=== PATIENT | female | born 1960 | race American Indian/Alaskan Native ===

== ENCOUNTER 2017-06-17 12:18 | Outpatient (CLI) | payer OTHER ==
[2017-06-17] MEDS ORDERED: PROVENTIL IH ONE (12:32)
== END 2017-06-17 12:19 | disposition home or self-care (01) ==
LOC: PF 12:18
PROVIDERS: ATTEND Internal Medicine
DX: J44.9 Chronic obstructive pulmonary disease, unspecified (principal); I10 Essential (primary) hypertension; F32.9 Major depressive disorder, single episode, unspecified; F17.200 Nicotine dependence, unspecified, uncomplicated
CPT/HCPCS: 94060

== ENCOUNTER 2017-07-26 07:19 | Emergency (ER) | payer SELFPAY ==
[2017-07-26] MEDS ORDERED: ATROVENT IH ONE (07:37)
[2017-07-26] MEDS ORDERED: PROVENTIL IH ONE (07:37)
--- NOTE | 2017-07-26 07:43 | Emergency Department Report ---
ED General Adult HPI - General Chief complaint: Dyspnea/Respdistress Stated complaint: FERNANDO Time Seen by Provider: 07/26/17 07:34 Source: patient Mode of arrival: Ambulatory Limitations: No Limitations - History of Present Illness Initial comments: PT c/o sob since this am at 0300. PT states she does not have insurance and she has COPD and she has tried to make her medicine last but she ran out. Complaint: copd -: Gradual, hour(s) Location: chest - Related Data Previous Rx's Medication Instructions Recorded Last Taken Type Azithromycin [Zithromax TAB] 250 mg PO QDAY #6 tablet 02/29/16 Unknown Rx Nebulizer/Compressor [Devilbiss 1 each MC DAILY PRN #1 each 02/29/16 Unknown Rx Pulmoneb Lt Comp-Neb] amLODIPine [Norvasc] 5 mg PO DAILY #15 tab 05/16/16 Unknown Rx Albuterol Sulfate [Albuterol 0.63% 0.63 mg IH TID PRN #1 box 07/26/17 Unknown Rx NEBS] Benzonatate [Tessalon Perles] 100 mg PO Q8HR PRN #12 capsule 07/26/17 Unknown Rx Ipratropium [Atrovent NEB] 0.5 mg IH Q6HRT PRN #1 box 07/26/17 Unknown Rx Prednisone [predniSONE 10 mg 10 mg PO .TAPER #1 tab.ds.pk 07/26/17 Unknown Rx (6-Day Pack, 21 Tabs)] traMADol [Ultram] 50 mg PO Q6HR PRN #12 tablet 07/26/17 Unknown Rx Allergies Allergy/AdvReac Type Severity Reaction Status Date / Time No Known Allergies Allergy Verified 05/16/16 09:50 ED Review of Systems ROS: Stated complaint: FERNANDO Other details as noted in HPI Comment: Unobtainable due to pts medical conditions (pt sob) Respiratory: cough, wheezing (audible ) ED Past Medical Hx - Past Medical History Previous Medical History?: Yes Hx COPD: Yes (several years ago) - Surgical History Past Surgical History?: No - Social History Smoking Status: Current Every Day Smoker Substance Use Type: Alcohol - Medications Home Medications: Home Medications Medication Instructions Recorded Confirmed Last Taken Type Azithromycin [Zithromax TAB] 250 mg PO QDAY #6 tablet 02/29/16 Unknown Rx Nebulizer/Compressor [Devilbiss 1 each MC DAILY PRN #1 each 02/29/16 Unknown Rx Pulmoneb Lt Comp-Neb] amLODIPine [Norvasc] 5 mg PO DAILY #15 tab 05/16/16 Unknown Rx Albuterol Sulfate [Albuterol 0.63% 0.63 mg IH TID PRN #1 box 07/26/17 Unknown Rx NEBS] Benzonatate [Tessalon Perles] 100 mg PO Q8HR PRN #12 capsule 07/26/17 Unknown Rx Ipratropium [Atrovent NEB] 0.5 mg IH Q6HRT PRN #1 box 07/26/17 Unknown Rx Prednisone [predniSONE 10 mg 10 mg PO .TAPER #1 tab.ds.pk 07/26/17 Unknown Rx (6-Day Pack, 21 Tabs)] traMADol [Ultram] 50 mg PO Q6HR PRN #12 tablet 07/26/17 Unknown Rx ED Physical Exam - General Limitations: No Limitations General appearance: alert, in no apparent distress - Head Head exam: Present: atraumatic, normocephalic, normal inspection - Eye Eye exam: Present: normal appearance, PERRL, EOMI. Absent: conjunctival injection - ENT ENT exam: Present: normal exam, mucous membranes moist, normal external ear exam , other (poor dentation ) - Neck Neck exam: Present: normal inspection, full ROM - Respiratory Respiratory exam: Present: respiratory distress, wheezes, accessory muscle use. Absent: normal lung sounds bilaterally, rhonchi, stridor, chest wall tenderness - Expanded Respiratory Exam Expanded Location: Wheezes: Right, Left, Upper, Lower - Cardiovascular Cardiovascular Exam: Present: regular rate, normal rhythm, normal heart sounds - GI/Abdominal GI/Abdominal exam: Present: soft. Absent: tenderness - Extremities Exam Extremities exam: Present: normal inspection, full ROM - Back Exam Back exam: Present: normal inspection, full ROM - Neurological Exam Neurological exam: Present: alert, oriented X3, normal gait - Psychiatric Psychiatric exam: Present: normal affect, normal mood - Skin Skin exam: Present: warm, dry, intact, normal color ED Course Vital Signs 07/26/17 07/26/17 07/26/17 07:21 08:05 08:32 Temperature 98 F Pulse Rate 90 Pulse Rate [ 100 H 102 H Bilateral Upper Lobe] Respiratory 26 H Rate Respiratory 20 20 Rate [Bilateral Upper Lobe] Blood Pressure 129/80 Blood Pressure [Right] O2 Sat by Pulse 98 Oximetry 07/26/17 07/26/17 09:54 10:00 Temperature Pulse Rate 88 Pulse Rate [ Bilateral Upper Lobe] Respiratory 22 20 Rate Respiratory Rate [Bilateral Upper Lobe] Blood Pressure Blood Pressure 111/74 [Right] O2 Sat by Pulse 96 99 Oximetry - Reevaluation(s) Reevaluation #1: 07/26/17 07:42 PT aware of plan of care. Reevaluation #2: 07/26/17 09:36 pt states she is feeling better. PT able to speak in full sentences. lungs cta but diminished zoe. no acute resp distress. PT denies chest pain/ pressure. PT c/o pain in her joints, patel zoe hands. PT states she was told it may be RA. PT states she wants to be dc'd home with RXs. PT states she was just approved for Medicaid and she can fill her RX and follow up with PCP. Will monitor and it pt remains stable will dc home. Reevaluation #3: 07/26/17 09:57 pt remains stable while in ED. No acute resp distress at this time. - Pulse Oximetry Interpretation Digit-Finger Initial Pulse Oximetry Readin Actions Taken: none ED Medical Decision Making - Lab Data Result diagrams: 07/26/17 08:00 07/26/17 08:00 - EKG Data -: EKG Interpreted by Me (and Dr Juarez ) EKG shows normal: sinus rhythm Rate: normal (88 BPM ) - EKG Data When compared to previous EKG there are: other (non specific changes) Interpretation: nonspecific ST-T wave yvonne 07/26/17 09:30 PT denies chest pain - Radiology Data Radiology results: report reviewed CXR -NAP - Differential Diagnosis COPD exacerbation, bronchitis, pna Critical Care Time: No Critical care attestation.: If time is entered above; I have spent that time in minutes in the direct care of this critically ill patient, excluding procedure time. ED Disposition Clinical Impression: COPD with exacerbation COPD (chronic obstructive pulmonary disease) Qualifiers: COPD type: COPD with acute exacerbation Qualified Code(s): J44.1 - Chronic obstructive pulmonary disease with (acute) exacerbation Arthralgia Qualifiers: Joint pain location: hand Laterality: bilateral Qualified Code(s): M25.541 - Pain in joints of right hand; M25.542 - Pain in joints of left hand Disposition: DC- TO HOME OR SELFCARE Is pt being admited?: No Does the pt Need Aspirin: No Condition: Stable Instructions: Chronic Obstructive Pulmonary Disease (ED) Additional Instructions: Refrain from smoking do not drive or drink alcohol after taking Ultram Follow up with PCP in 3-5 days Follow up with Pulmonary (lung specialist) Return to the ED if you develop chest pain, chest pressure or shortness of breath Prescriptions: Albuterol Sulfate [Albuterol 0.63% NEBS] 0.63 mg IH TID PRN #1 box PRN Reason: Wheezing Benzonatate [Tessalon Perles] 100 mg PO Q8HR PRN #12 capsule PRN Reason: Cough Ipratropium [Atrovent NEB] 0.5 mg IH Q6HRT PRN #1 box PRN Reason: Wheezing Prednisone [predniSONE 10 mg (6-Day Pack, 21 Tabs)] 10 mg PO .TAPER #1 tab.ds.pk traMADol [Ultram] 50 mg PO Q6HR PRN #12 tablet PRN Reason: Pain Referrals: PRIMARY CAREMD [Primary Care Provider] - 3-5 Days DANG CERON MD [Staff Physician] - 3-5 Days FENG COOMBS MD [Staff Physician] - 3-5 Days [facility] [Outside] - 3-5 Days Time of Disposition: 10:07
[2017-07-26 08:13] LABS: Basophils % (Auto) 0.7 % (0.0-1.8); Eosinophils % (Auto) 4.2 % (0.0-4.3); Mean Corpuscular HGB Conc 31 % (30-34); Mean Corpuscular Hemoglobin 26 pg (28-32); Mean Corpuscular Volume 85 fl (79-97); Platelet Count 269 K/mm3 (140-440); Red Blood Count 5.51 M/mm3 (3.65-5.03); Red Cell Distribution Width 15.5 % (13.2-15.2); White Blood Count 11.6 K/mm3 (4.5-11.0)
[2017-07-26 08:25] LABS: Hematocrit 46.9 % (30.3-42.9); Hemoglobin 14.5 gm/dl (10.1-14.3)
[2017-07-26 08:27] LABS: Anion Gap 17 mmol/L; BUN/Creatinine Ratio 13.33; Blood Urea Nitrogen 12 mg/dL (7-17); Calcium 7.9 mg/dL (8.4-10.2); Carbon Dioxide 26 mmol/L (22-30); Chloride 105.5 mmol/L (98-107); Glucose 111 mg/dL (65-100); Potassium 4.3 mmol/L (3.6-5.0); Sodium 144 mmol/L (137-145)
--- NOTE | 2017-07-26 08:45 | XRay Report ---
Chest 2 views: History: COPD, shortness of breath. Findings: Normal cardiomediastinal silhouette. Trachea is midline. No consolidation, pneumothorax or pleural effusion. Impression: No acute cardiopulmonary findings.
[2017-07-26 10:01] VITALS: BP 111/74
== END 2017-07-26 10:18 | disposition home or self-care (01) ==
LOC: ED 07:19
DX: J44.1 Chronic obstructive pulmonary disease with (acute) exacerbation (principal); M25.541 Pain in joints of right hand; F17.200 Nicotine dependence, unspecified, uncomplicated
CPT/HCPCS: 36415; 71020; 80048; 84484; 85025; 93005; 93010; 94640; 96372; 99284; J2930

== ENCOUNTER 2017-11-16 01:50 | Inpatient (IN) | payer MEDICAID ==
[2017-11-16] MEDS ORDERED: ROBITUSSIN AC PO ONE (02:17)
[2017-11-16] MEDS ORDERED: TESSALON PERLES PO ONE (02:17)
[2017-11-16] MEDS ORDERED: DUONEB *Not for PRN Use IH ONE (02:18)
--- NOTE | 2017-11-16 02:35 | Emergency Department Report ---
HPI - General Chief Complaint: Dyspnea/Respdistress Time Seen by Provider: 11/16/17 02:09 - HPI HPI: This is a 57 year-old female presents to the emergency department via EMS from home with complaint of a few days of some shortness of breath, a productive cough with thick greenish white sputum. She denies any significant chest pain but does have a little discomfort only when she coughs. It is associated with some intermittent chills and sweats but she denies actual checking her temperature to see if there is a fever. She is out of her medication for her inhaler and nebulizer and therefore has not taken anything for her symptoms prior to presentation. She has a past medical history of COPD and is oxygen dependent at 2 L. She did receive Solu-Medrol and albuterol in route with EMS. She does not have a primary care physician but her solution consultant is Dr. Ferreira. ED Past Medical Hx - Past Medical History Previous Medical History?: Yes Hx COPD: Yes (several years ago) - Surgical History Past Surgical History?: No - Social History Smoking Status: Current Every Day Smoker - Medications Home Medications: Home Medications Medication Instructions Recorded Confirmed Last Taken Type Azithromycin [Zithromax TAB] 250 mg PO QDAY #6 tablet 02/29/16 Unknown Rx Nebulizer and Compressor 1 each MC DAILY PRN #1 each 02/29/16 Unknown Rx [Devilbiss Pulmoneb Lt Comp-Neb] amLODIPine [Norvasc] 5 mg PO DAILY #15 tab 05/16/16 Unknown Rx Albuterol Sulfate [Albuterol 0.63% 0.63 mg IH TID PRN #1 box 07/26/17 Unknown Rx NEBS] Benzonatate [Tessalon Perles] 100 mg PO Q8HR PRN #12 capsule 07/26/17 Unknown Rx Ipratropium [Atrovent NEB] 0.5 mg IH Q6HRT PRN #1 box 07/26/17 Unknown Rx Prednisone [predniSONE 10 mg 10 mg PO .TAPER #1 tab.ds.pk 07/26/17 Unknown Rx (6-Day Pack, 21 Tabs)] traMADol [Ultram] 50 mg PO Q6HR PRN #12 tablet 07/26/17 Unknown Rx ED Review of Systems ROS: Stated complaint: FERNANDO Other details as noted in HPI Comment: All other systems reviewed and negative Constitutional: denies: chills, fever Eyes: denies: eye pain, eye discharge, vision change ENT: denies: ear pain, throat pain Respiratory: cough, shortness of breath, wheezing Cardiovascular: denies: palpitations, edema Gastrointestinal: denies: abdominal pain, nausea, diarrhea Genitourinary: denies: urgency, dysuria, discharge Musculoskeletal: denies: back pain, joint swelling, arthralgia Skin: denies: rash, lesions Neurological: denies: headache, weakness, paresthesias Physical Exam - Physical Exam Vital Signs: Vital Signs 11/16/17 01:55 Temperature 98.6 F Pulse Rate 88 Respiratory 22 Rate Blood Pressure 143/84 O2 Sat by Pulse 96 Oximetry Physical Exam: GENERAL: The patient is well-developed well-nourished. HENT: Normocephalic. Atraumatic. Patient has moist mucous membranes. EYES: Extraocular motions are intact. Pupils equal reactive to light bilaterally. NECK: Supple. Trachea is midline. CHEST/LUNGS: Mild to moderate wheezing throughout the chest. There is some mild tachypnea but no accessory muscle use. The patient has a barking cough that occurs with coughing fits that appears to exacerbate her shortness of breath. HEART/CARDIOVASCULAR: Regular. There is no tachycardia. There is no murmur. ABDOMEN: Abdomen is soft, nontender. Patient has normal bowel sounds. There is no abdominal distention. SKIN: Skin is warm and dry. NEURO: The patient is awake, alert, and oriented. The patient is cooperative. The patient has no focal neurologic deficits. The patient has normal speech. MUSCULOSKELETAL: There is no tenderness or deformity. There is no limitation range of motion. There is no evidence of acute injury. ED Course Vital Signs 11/16/17 01:55 Temperature 98.6 F Pulse Rate 88 Respiratory 22 Rate Blood Pressure 143/84 O2 Sat by Pulse 96 Oximetry ED Medical Decision Making - Lab Data Result diagrams: 11/16/17 02:34 11/16/17 02:34 - Radiology Data Radiology results: report reviewed EXAM: CT ANGIO CHEST HISTORY: SOB, elevated dimer TECHNIQUE: CT imaging obtained through the chest in pulmonary angiographic phase following intravenous administration of contrast. Transaxial, Coronal and sagittal reformats with maximal intensity projections are provided. PRIORS: Chest radiograph of the same date FINDINGS: Normal caliber main pulmonary artery. Well opacified pulmonary arterial tree. No pulmonary embolism. No pericardial effusion. Thoracic aorta is normal in course and caliber. No periaortic fluid or stranding. No pneumothorax or effusion. Predominantly linear right basilar atelectasis. Moderate centrilobular emphysema. The central airways are patent. No bronchiectasis. Imaged portion of the upper abdomen is unremarkable. The superficial soft tissues are unremarkable. No acute bony abnormality or worrisome osseous lesions identified. IMPRESSION: No pulmonary embolism. Predominantly linear right basilar atelectasis. An underlying small developing infection could appear very similar. Correlation with patient's symptoms is requested. Moderate centrilobular emphysema. Transcribed By: MB Dictated By: CAREY FREIRE MD Electronically Authenticated By: CAREY FREIRE MD Signed Date/Time: 11/16/17 0026 - Medical Decision Making 57-year-old female presents with shortness of breath, wheezing and a mixed dry and productive cough. She has some mild tachypnea but does not appear in respiratory distress. However the patient's coughing fits occur so badly and so intensely that sometimes she appears as if she is unable to catch her breath until the coughing stops. She received steroids and breathing treatments in route. She received 2 different antitussive medications and more breathing treatments upon arrival here. Labs show a mild leukocytosis and an elevated an equivocal d-dimer. For this reason a CT angiography of the chest was done that did not show any pulmonary embolism and does appear consistent with COPD/ emphysema but also may be showing some developing pneumonia. Blood cultures were sent and the patient was started on antibiotics. She'll be admitted to the hospital for further evaluation and treatment has been accepted for admission by the hospitalist, Dr. Shannon. - Differential Diagnosis COPD, PE, asthma, pneumonia Critical Care Time: No Critical care attestation.: If time is entered above; I have spent that time in minutes in the direct care of this critically ill patient, excluding procedure time. ED Disposition Clinical Impression: COPD exacerbation, Bronchitis Dyspnea Qualifiers: Dyspnea type: unspecified Qualified Code(s): R06.00 - Dyspnea, unspecified Disposition: DC-01 TO HOME OR SELFCARE Is pt being admited?: No Condition: Fair Time of Disposition: 05:13
[2017-11-16 02:57] LABS: Basophils % (Auto) 0.5 % (0.0-1.8); Eosinophils % (Auto) 0.6 % (0.0-4.3); Hematocrit 34.6 % (30.3-42.9); Hemoglobin 11.4 gm/dl (10.1-14.3); Mean Corpuscular HGB Conc 33 % (30-34); Mean Corpuscular Hemoglobin 28 pg (28-32); Mean Corpuscular Volume 84 fl (79-97); Platelet Count 237 K/mm3 (140-440); Red Blood Count 4.11 M/mm3 (3.65-5.03); Red Cell Distribution Width 15.2 % (13.2-15.2); White Blood Count 12.5 K/mm3 (4.5-11.0)
[2017-11-16 03:08] LABS: INR 0.9 (0.87-1.13)
[2017-11-16 03:15] LABS: Alanine Aminotransferase 13 units/L (7-56); Albumin 3.5 g/dL (3.9-5); Albumin/Globulin Ratio 1.5 %; Alkaline Phosphatase 93 units/L (35-129); Anion Gap 16 mmol/L; BUN/Creatinine Ratio 14; Blood Urea Nitrogen 10 mg/dL (7-17); Calcium 8.6 mg/dL (8.4-10.2); Carbon Dioxide 25 mmol/L (22-30); Chloride 104.8 mmol/L (98-107); Glucose 144 mg/dL (65-100); Potassium 3.6 mmol/L (3.6-5.0); Sodium 142 mmol/L (137-145); Total Protein 5.9 g/dL (6.3-8.2)
[2017-11-16] MEDS ORDERED: NACL ONE ×2 (03:33)
--- NOTE | 2017-11-16 03:57 | XRay Report ---
FINAL REPORT EXAM: XR CXR CLINICAL INDICATIONS: SOB, COUGH FINDINGS: Single frontal view of the chest was acquired. The heart is normal in size. The lungs are hyperinflated but clear. The pulmonary vascular is within normal limits. IMPRESSION: HYPERINFLATION NO CONSOLIDATIVE INFILTRATE
--- NOTE | 2017-11-16 04:29 | Cat Scan Report ---
FINAL REPORT EXAM: CT ANGIO CHEST HISTORY: SOB, elevated dimer TECHNIQUE: CT imaging obtained through the chest in pulmonary angiographic phase following intravenous administration of contrast. Transaxial, Coronal and sagittal reformats with maximal intensity projections are provided. PRIORS: Chest radiograph of the same date FINDINGS: Normal caliber main pulmonary artery. Well opacified pulmonary arterial tree. No pulmonary embolism. No pericardial effusion. Thoracic aorta is normal in course and caliber. No periaortic fluid or stranding. No pneumothorax or effusion. Predominantly linear right basilar atelectasis. Moderate centrilobular emphysema. The central airways are patent. No bronchiectasis. Imaged portion of the upper abdomen is unremarkable. The superficial soft tissues are unremarkable. No acute bony abnormality or worrisome osseous lesions identified. IMPRESSION: No pulmonary embolism. Predominantly linear right basilar atelectasis. An underlying small developing infection could appear very similar. Correlation with patient's symptoms is requested. Moderate centrilobular emphysema.
[2017-11-16] MEDS ORDERED: PROVENTIL IH ONE (04:44)
[2017-11-16] MEDS ORDERED: LEVAQUIN 750MG/150ML 750 MG/150 ML BAG IV ONE (04:51)
[2017-11-16] MEDS ORDERED: ZOFRAN IV PRN (05:29)
[2017-11-16] MEDS ORDERED: TYLENOL PO PRN (05:29)
[2017-11-16] MEDS ORDERED: DULCOLAX PR PRN (05:29)
--- NOTE | 2017-11-16 05:39 | History and Physical Report ---
History of Present Illness Date of examination: 11/16/17 History of present illness: 57-year-old woman with history of COPD, asthma comes into the emergency room complaining of cough productive of thick green sputum, shortness of breath not relieved with her nebulizer treatments at home. Also complained that her anterior chest feels heavy since yesterday, constant, intensity for withdrawal, no radiation, she cannot be exacerbating or relieving factors Review Of Systems: Constitutional: no weight loss Ears, eyes, nose, mouth and throat: no nasal congestion, no nasal discharge, no sinus pressure, blurry vision, diplopia Neck: No neck pain or rigidity. Cardiovascular: No chest pain, palpitations Respiratory:+ shortness of breath, cough Gastrointestinal: No abdominal pain, hematochezia Genitourinary : no dysuria, frequency , hematuria Musculoskeletal: no muscle ache Integumentary: no rash, no pruritis Neurological: no parathesias, focal weakness Endocrine: no cold or heat intolerance, no polyuria or polydipsia Hematologic/Lymphatic: no easy bruising, no easy bleeding, no gland swelling Allergic/Immunologic: no urticaria, no angioedema. PAST MEDICAL HISTORY:COPD, asthma PAST SURGICAL HISTORY: None FAMILY HISTORY: Hypertension SOCIAL HISTORY: Smokes 4 cigarettes a day, no alcohol or drug Medications and Allergies Allergies Allergy/AdvReac Type Severity Reaction Status Date / Time No Known Allergies Allergy Verified 05/16/16 09:50 Home Medications Medication Instructions Recorded Confirmed Last Taken Type Azithromycin [Zithromax TAB] 250 mg PO QDAY #6 tablet 02/29/16 Unknown Rx Nebulizer and Compressor 1 each MC DAILY PRN #1 each 02/29/16 Unknown Rx [Devilbiss Pulmoneb Lt Comp-Neb] amLODIPine [Norvasc] 5 mg PO DAILY #15 tab 05/16/16 Unknown Rx Albuterol Sulfate [Albuterol 0.63% 0.63 mg IH TID PRN #1 box 07/26/17 Unknown Rx NEBS] Benzonatate [Tessalon Perles] 100 mg PO Q8HR PRN #12 capsule 07/26/17 Unknown Rx Ipratropium [Atrovent NEB] 0.5 mg IH Q6HRT PRN #1 box 07/26/17 Unknown Rx Prednisone [predniSONE 10 mg 10 mg PO .TAPER #1 tab.ds.pk 07/26/17 Unknown Rx (6-Day Pack, 21 Tabs)] traMADol [Ultram] 50 mg PO Q6HR PRN #12 tablet 07/26/17 Unknown Rx Active Meds: Active Medications Acetaminophen (Tylenol) 650 mg PO Q4H PRN PRN Reason: Pain MILD(1-3)/Fever >100.5/MENG Albuterol/Ipratropium (Duoneb *Not For Prn Use*) 1 ampul IH Q6HRT YAKOV Bisacodyl (Dulcolax) 10 mg NC QDAY PRN PRN Reason: Const[place]rel[place] [facility] [place] Enoxaparin Sodium (Lovenox) 30 mg SUB-Q QDAY YAKOV Levofloxacin/Dextrose (Levaquin 750mg/150ml) 750 mg in 150 mls @ 100 mls/hr IV ONCE ONE Stop: 11/16/17 06:20 Levofloxacin/Dextrose (Levaquin 750mg/150ml) 750 mg in 150 mls @ 100 mls/hr IV ONCE ONE Stop: 11/17/17 06:58 Magnesium Hydroxide (Milk Of Magnesia) 30 ml PO Q4H PRN PRN Reason: Constipation Methylprednisolone Sodium Succinate (Solu-Medrol) 125 mg IV Q6HR YAKOV Ondansetron HCl (Zofran) 4 mg IV Q8H PRN PRN Reason: N/V unrelieved by Reglan Exam - Physical Exam Narrative exam: Gen. appearance: Patient lying in bed in no acute distress HEENT: Normocephalic/atraumatic, pupils equal round reactive to light, extra occular movement intact, no scleral icterus, no JVD or thyromegaly or nodule, neck is supple, mucous membrane moist, no erythema or exudate Heart: S1-S2, regular rate and rhythm Lungs: Wheezing, decreased entry bilateral breathing comfortable Abdomen: Positive bowel sounds, nontender, nondistended, no organomegaly Extremities: No edema, cyanosis, clubbing Neuro:: Oriented 3 , cranial nerves II-12 intact, speech, motor intact Skin: No rash, nodules, warm dry - Constitutional Vitals: Temp Pulse Resp BP Pulse Ox 98.6 F 88 31 H 148/76 100 11/16/17 01:55 11/16/17 03:30 11/16/17 03:30 11/16/17 03:30 11/16/17 03:30 Results - Labs CBC & Chem 7: 11/16/17 02:34 11/16/17 02:34 Labs: Abnormal lab results 11/16/17 11/16/17 11/16/17 Range/Units 02:34 02:34 02:34 WBC 12.5 H (4.5-11.0) K/mm3 Lymph % (Auto) 9.8 L (13.4-35.0) % Seg Neutrophils % 84.4 H (40.0-70.0) % Seg Neutrophils # 10.6 H (1.8-7.7) K/mm3 D-Dimer 361.00 H (0-234) ng/mlDDU Glucose 144 H (65-100) mg/dL Total Protein 5.9 L (6.3-8.2) g/dL Albumin 3.5 L (3.9-5) g/dL - Imaging and Cardiology EKG: image reviewed Chest x-ray: image reviewed CT scan - chest: report reviewed Assessment and Plan Assessment COPD exacerbation Chest tightness probably secondary to #1 Plan Start high-dose steroids, nebulizer treatment, IV antibiotic Cardiac enzymes Reassess chest pain, might need stress test DVT prophylaxis
[2017-11-16 06:17] LABS: Creatine Kinase MB 1.6 ng/mL (0.0-4.0)
[2017-11-16] MEDS: DUONEB *Not for PRN Use IH SCH ×3 (07:38→19:49)
[2017-11-16] MEDS: MUCINEX ER PO PRN (11:25)
[2017-11-16] MEDS: LOVENOX SUB-Q SCH (11:29)
[2017-11-16 11:57] LABS: Creatine Kinase MB 1.8 ng/mL (0.0-4.0)
--- NOTE | 2017-11-16 14:00 | Event Note ---
Date: 11/16/17 Patient seen and examined. Patient admitted overnight for COPD exacerbation. Still with severe cough CT angiogram of the chest reported as no PE, predominantly linear right basilar atelectasis, and underlining small developing infection could appear very similar, correlation with patient's symptoms is requested, moderate central lobar emphysema Ordered Tussrejix Coty [id number], Mucinex when necessary and Robitussin- AC when necessary Counseling done on smoking cessation
[2017-11-16] MEDS: TESSALON PERLES PO SCH ×2 (14:34→21:54)
[2017-11-16] MEDS: ROBITUSSIN AC PO PRN ×2 (14:42→18:12)
[2017-11-16] MEDS ORDERED: PROVENTIL IH PRN (20:13)
[2017-11-16] MEDS: PULMICORT IH SCH (20:35)
[2017-11-17] MEDS: DUONEB *Not for PRN Use IH SCH ×4 (02:37→19:33)
[2017-11-17] MEDS: ROBITUSSIN AC PO PRN ×3 (05:23→15:42)
[2017-11-17] MEDS: TESSALON PERLES PO SCH ×3 (05:23→21:00)
[2017-11-17] MEDS ORDERED: LEVAQUIN 750MG/150ML 750 MG/150 ML BAG IV ONE (05:29)
[2017-11-17 05:42] LABS: Hematocrit 32.6 % (30.3-42.9); Hemoglobin 10.5 gm/dl (10.1-14.3); Mean Corpuscular HGB Conc 32 % (30-34); Mean Corpuscular Hemoglobin 27 pg (28-32); Mean Corpuscular Volume 84 fl (79-97); Platelet Count 263 K/mm3 (140-440); Red Blood Count 3.86 M/mm3 (3.65-5.03)
[2017-11-17 05:57] LABS: Anion Gap 17 mmol/L; BUN/Creatinine Ratio 19; Blood Urea Nitrogen 13 mg/dL (7-17); Carbon Dioxide 25 mmol/L (22-30); Chloride 106.1 mmol/L (98-107); Glucose 163 mg/dL (65-100); Potassium 3.7 mmol/L (3.6-5.0); Sodium 144 mmol/L (137-145)
[2017-11-17] MEDS: PULMICORT IH SCH ×2 (08:04→19:33)
[2017-11-17 08:08] LABS: Basophils % (Manual) 0 % (0.0-1.8); Blastocytes % (Manual) 0 %; Eosinophils % (Manual) 0 % (0.0-4.3)
[2017-11-17 08:09] LABS: Anisocytosis 1+; Hypochromasia 1+; Large Platelets Few
[2017-11-17 08:10] LABS: Diff Status Complete
[2017-11-17] MEDS: MUCINEX ER PO PRN (09:41)
[2017-11-17] MEDS: LOVENOX SUB-Q SCH (09:41)
[2017-11-17] MEDS: LEVAQUIN 750MG/150ML 750 MG/150 ML BAG IV SCH (09:41)
--- NOTE | 2017-11-17 10:06 | Progress Note ---
Assessment and Plan Assessment and plan: Acute on chronic respiratory failure due to COPD exacerbation. Continue supplemental oxygen. She has oxygen saturation of 96% on 2 L/m by nasal cannula. COPD exacerbation. solumedrol, DuoNeb and supplemental oxygen. Leukocytosis worsening due to steroids. Hypertension. BP stable. Will resume norvasc DVT prophylaxis with Lovenox Obesity. I discussed with her about diet and excercise to lose weight. Full code status. History Interval history: Shortness of breath, Cough Hospitalist Physical - Physical exam Narrative exam: GEN APPEARANCE : Not in acute distress HEENT: Normocephalic, Atraumatic NECK : supple, no JVD LUNGS: Decreased breath sounds bilaterally, bilateral rhonchi, wheeze HEART: S1 and S2 regular, no murmurs, rubs or gallop, ABD: Soft, non tender, non distended, normal bowel sounds EXT: No edema, no clubbing, no cyanosis NEURO: Awake,alert, oriented x 3, no focal neurological signs - Constitutional Vitals: Temp Pulse Resp BP Pulse Ox 98.6 F 93 H 22 135/68 96 11/17/17 07:44 11/17/17 07:44 11/17/17 07:44 11/17/17 07:44 11/17/17 07:44 Results - Labs CBC & Chem 7: 11/17/17 05:01 11/17/17 05:01 Labs: Laboratory Last Values WBC 21.0 K/mm3 (4.5-11.0) H 11/17/17 05:01 RBC 3.86 M/mm3 (3.65-5.03) 11/17/17 05:01 Hgb 10.5 gm/dl (10.1-14.3) 11/17/17 05:01 Hct 32.6 % (30.3-42.9) 11/17/17 05:01 MCV 84 fl (79-97) 11/17/17 05:01 MCH 27 pg (28-32) L 11/17/17 05:01 MCHC 32 % (30-34) 11/17/17 05:01 RDW 15.0 % (13.2-15.2) 11/17/17 05:01 Plt Count 263 K/mm3 (140-440) 11/17/17 05:01 Lymph % (Auto) 9.8 % (13.4-35.0) L 11/16/17 02:34 [place] % (Auto) 4.7 % (0.0-7.3) 11/16/17 02:34 Eos % (Auto) 0.6 % (0.0-4.3) 11/16/17 02:34 Baso % (Auto) 0.5 % (0.0-1.8) 11/16/17 02:34 Lymph # 1.2 K/mm3 (1.2-5.4) 11/16/17 02:34 [place] # 0.6 K/mm3 (0.0-0.8) 11/16/17 02:34 Eos # 0.1 K/mm3 (0.0-0.4) 11/16/17 02:34 Baso # 0.1 K/mm3 (0.0-0.1) 11/16/17 02:34 Add Manual Diff Complete 11/17/17 05:01 Total Counted 100 11/17/17 05:01 Seg Neutrophils % Drum Drier 11/17/17 05:01 Seg Neuts % (Manual) 75.0 % (40.0-70.0) H 11/17/17 05:01 Band Neutrophils % 8.0 % 11/17/17 05:01 Lymphocytes % (Manual) 11.0 % (13.4-35.0) L 11/17/17 05:01 Reactive Lymphs % (Man) 0 % 11/17/17 05:01 Monocytes % (Manual) 6.0 % (0.0-7.3) 11/17/17 05:01 Eosinophils % (Manual) 0 % (0.0-4.3) 11/17/17 05:01 Basophils % (Manual) 0 % (0.0-1.8) 11/17/17 05:01 Metamyelocytes % 0 % 11/17/17 05:01 Myelocytes % 0 % 11/17/17 05:01 Promyelocytes % 0 % 11/17/17 05:01 Blast Cells % 0 % 11/17/17 05:01 Nucleated RBC % Not Reportable 11/17/17 05:01 Seg Neutrophils # 10.6 K/mm3 (1.8-7.7) H 11/16/17 02:34 Seg Neutrophils # Man 15.8 K/mm3 (1.8-7.7) H 11/17/17 05:01 Band Neutrophils # 1.7 K/mm3 11/17/17 05:01 Lymphocytes # (Manual) 2.3 K/mm3 (1.2-5.4) 11/17/17 05:01 Abs React Lymphs (Man) 0.0 K/mm3 11/17/17 05:01 Monocytes # (Manual) 1.3 K/mm3 (0.0-0.8) H 11/17/17 05:01 Eosinophils # (Manual) 0.0 K/mm3 (0.0-0.4) 11/17/17 05:01 Basophils # (Manual) 0.0 K/mm3 (0.0-0.1) 11/17/17 05:01 Metamyelocytes # 0.0 K/mm3 11/17/17 05:01 Myelocytes # 0.0 K/mm3 11/17/17 05:01 Promyelocytes # 0.0 K/mm3 11/17/17 05:01 Blast Cells # 0.0 K/mm3 11/17/17 05:01 WBC Morphology Not Reportable 11/17/17 05:01 Hypersegmented Neuts Not Reportable 11/17/17 05:01 Hyposegmented Neuts Not Reportable 11/17/17 05:01 Hypogranular Neuts Not Reportable 11/17/17 05:01 Smudge Cells Not Reportable 11/17/17 05:01 Toxic Granulation Not Reportable 11/17/17 05:01 Toxic Vacuolation Not Reportable 11/17/17 05:01 Dohle Bodies Not Reportable 11/17/17 05:01 Pelger-Huet Anomaly Not Reportable 11/17/17 05:01 Reji Rods Not Reportable 11/17/17 05:01 Platelet Estimate Appears normal 11/17/17 05:01 Clumped Platelets Not Reportable 11/17/17 05:01 Plt Clumps, EDTA Not Reportable 11/17/17 05:01 Large Platelets Few 11/17/17 05:01 Giant Platelets Not Reportable 11/17/17 05:01 Platelet Satelliting Not Reportable 11/17/17 05:01 Plt Morphology Comment Not Reportable 11/17/17 05:01 RBC Morphology Not Reportable 11/17/17 05:01 Dimorphic RBCs Not Reportable 11/17/17 05:01 Polychromasia Not Reportable 11/17/17 05:01 Hypochromasia 1+ 11/17/17 05:01 Poikilocytosis Not Reportable 11/17/17 05:01 Anisocytosis 1+ 11/17/17 05:01 Microcytosis Not Reportable 11/17/17 05:01 Macrocytosis Not Reportable 11/17/17 05:01 Spherocytes Not Reportable 11/17/17 05:01 Pappenheimer Bodies Not Reportable 11/17/17 05:01 Sickle Cells Not Reportable 11/17/17 05:01 Target Cells Not Reportable 11/17/17 05:01 Tear Drop Cells Not Reportable 11/17/17 05:01 Ovalocytes Not Reportable 11/17/17 05:01 Helmet Cells Not Reportable 11/17/17 05:01 Castaneda-[place] Bodies Not Reportable 11/17/17 05:01 [place] Rings Not Reportable 11/17/17 05:01 [place] Cells Not Reportable 11/17/17 05:01 Bite Cells Not Reportable 11/17/17 05:01 Crenated Cell Not Reportable 11/17/17 05:01 Elliptocytes Not Reportable 11/17/17 05:01 Acanthocytes (Spur) Not Reportable 11/17/17 05:01 Rouleaux Not Reportable 11/17/17 05:01 Hemoglobin C Crystals Not Reportable 11/17/17 05:01 Schistocytes Not Reportable 11/17/17 05:01 Malaria parasites Not Reportable 11/17/17 05:01 Isaiah Bodies Not Reportable 11/17/17 05:01 Hem Pathologist Commnt No 11/17/17 05:01 PT 12.6 Sec. (12.2-14.9) 11/16/17 02:34 INR 0.90 (0.87-1.13) 11/16/17 02:34 APTT 31.0 Sec. (24.2-36.6) 11/16/17 02:34 D-Dimer 361.00 ng/mlDDU (0-234) H 11/16/17 02:34 Sodium 144 mmol/L (137-145) 11/17/17 05:01 Potassium 3.7 mmol/L (3.6-5.0) 11/17/17 05:01 Chloride 106.1 mmol/L (98-107) 11/17/17 05:01 Carbon Dioxide 25 mmol/L (22-30) 11/17/17 05:01 Anion Gap 17 mmol/L 11/17/17 05:01 BUN 13 mg/dL (7-17) 11/17/17 05:01 Creatinine 0.7 mg/dL (0.7-1.2) 11/17/17 05:01 Estimated GFR > 60 ml/min 11/17/17 05:01 BUN/Creatinine Ratio 19 % 11/17/17 05:01 Glucose 163 mg/dL (65-100) H 11/17/17 05:01 Calcium 9.0 mg/dL (8.4-10.2) 11/17/17 05:01 Total Bilirubin 0.20 mg/dL (0.1-1.2) 11/16/17 02:34 AST 11 units/L (5-40) 11/16/17 02:34 ALT 13 units/L (7-56) 11/16/17 02:34 Alkaline Phosphatase 93 units/L (35-129) 11/16/17 02:34 Total Creatine Kinase 77 units/L (30-135) 11/16/17 11:24 CK-MB (CK-2) 1.8 ng/mL (0.0-4.0) 11/16/17 11:24 CK-MB (CK-2) Rel Index 2.3 (0-4) 11/16/17 11:24 Troponin T < 0.010 ng/mL (0.00-0.029) 11/16/17 11:24 NT-Pro-B Natriuret Pep 381.2 pg/mL (0-900) 11/16/17 02:34 Total Protein 5.9 g/dL (6.3-8.2) L 11/16/17 02:34 Albumin 3.5 g/dL (3.9-5) L 11/16/17 02:34 Albumin/Globulin Ratio 1.5 % 11/16/17 02:34
[2017-11-17] MEDS: MILK OF MAGNESIA PO PRN ×2 (10:48→21:00)
[2017-11-17] MEDS ORDERED: PNEUMOVAX 23 IM ONE (12:00)
[2017-11-17] MEDS ORDERED: Fluarix Quad 2017-2018(36 MOS+ IM ONE (12:00)
[2017-11-17] MEDS: NORCO 5/325 PO PRN (15:40)
[2017-11-18] MEDS: DUONEB *Not for PRN Use IH SCH ×4 (01:36→20:41)
[2017-11-18] MEDS: TESSALON PERLES PO SCH ×3 (05:38→21:30)
[2017-11-18 07:21] LABS: Hematocrit 33.2 % (30.3-42.9); Hemoglobin 10.6 gm/dl (10.1-14.3); Mean Corpuscular HGB Conc 32 % (30-34); Mean Corpuscular Hemoglobin 27 pg (28-32); Mean Corpuscular Volume 85 fl (79-97); Platelet Count 280 K/mm3 (140-440); Red Blood Count 3.89 M/mm3 (3.65-5.03); Red Cell Distribution Width 15.8 % (13.2-15.2)
[2017-11-18 07:29] LABS: White Blood Count 21.7 K/mm3 (4.5-11.0)
[2017-11-18] MEDS: PULMICORT IH SCH ×2 (08:19→20:41)
[2017-11-18] MEDS ORDERED: PROVENTIL IH PRN (08:28)
--- NOTE | 2017-11-18 09:02 | Progress Note ---
Assessment and Plan Assessment and plan: Acute on chronic respiratory failure due to COPD exacerbation. She is still short of breath. Continue supplemental oxygen. She has oxygen saturation of 96 % on 2 L/m by nasal cannula. COPD exacerbation. Solumedrol, DuoNeb and supplemental oxygen. Leukocytosis worse due to steroids. Hypertension. BP stable. Continue Norvasc DVT prophylaxis with Lovenox Obesity. I discussed with her about diet and excercise to lose weight. Full code status. History Interval history: Still having Shortness of breath, Still coughing Hospitalist Physical - Physical exam Narrative exam: GEN APPEARANCE : Not in acute distress HEENT: Normocephalic, Atraumatic NECK : supple, no JVD LUNGS: Decreased breath sounds bilaterally, bilateral rhonchi, wheeze HEART: S1 and S2 regular, no murmurs, rubs or gallop, ABD: Soft, non tender, non distended, normal bowel sounds EXT: No edema, no clubbing, no cyanosis NEURO: Awake,alert, oriented x 3, no focal neurological signs - Constitutional Vitals: Temp Pulse Resp BP Pulse Ox 98.4 F 101 H 20 139/72 97 11/18/17 07:52 11/18/17 08:34 11/18/17 08:34 11/18/17 07:52 11/18/17 08:26 Results - Labs CBC & Chem 7: 11/18/17 05:45 11/17/17 05:01 Labs: Laboratory Last Values WBC 21.7 K/mm3 (4.5-11.0) H 11/18/17 05:45 RBC 3.89 M/mm3 (3.65-5.03) 11/18/17 05:45 Hgb 10.6 gm/dl (10.1-14.3) 11/18/17 05:45 Hct 33.2 % (30.3-42.9) 11/18/17 05:45 MCV 85 fl (79-97) 11/18/17 05:45 MCH 27 pg (28-32) L 11/18/17 05:45 MCHC 32 % (30-34) 11/18/17 05:45 RDW 15.8 % (13.2-15.2) H 11/18/17 05:45 Plt Count 280 K/mm3 (140-440) 11/18/17 05:45 Lymph % (Auto) 9.8 % (13.4-35.0) L 11/16/17 02:34 [place] % (Auto) 4.7 % (0.0-7.3) 11/16/17 02:34 Eos % (Auto) 0.6 % (0.0-4.3) 11/16/17 02:34 Baso % (Auto) 0.5 % (0.0-1.8) 11/16/17 02:34 Lymph # 1.2 K/mm3 (1.2-5.4) 11/16/17 02:34 [place] # 0.6 K/mm3 (0.0-0.8) 11/16/17 02:34 Eos # 0.1 K/mm3 (0.0-0.4) 11/16/17 02:34 Baso # 0.1 K/mm3 (0.0-0.1) 11/16/17 02:34 Add Manual Diff Complete 11/17/17 05:01 Total Counted 100 11/17/17 05:01 Seg Neutrophils % Property Staff Accountant 11/17/17 05:01 Seg Neuts % (Manual) 75.0 % (40.0-70.0) H 11/17/17 05:01 Band Neutrophils % 8.0 % 11/17/17 05:01 Lymphocytes % (Manual) 11.0 % (13.4-35.0) L 11/17/17 05:01 Reactive Lymphs % (Man) 0 % 11/17/17 05:01 Monocytes % (Manual) 6.0 % (0.0-7.3) 11/17/17 05:01 Eosinophils % (Manual) 0 % (0.0-4.3) 11/17/17 05:01 Basophils % (Manual) 0 % (0.0-1.8) 11/17/17 05:01 Metamyelocytes % 0 % 11/17/17 05:01 Myelocytes % 0 % 11/17/17 05:01 Promyelocytes % 0 % 11/17/17 05:01 Blast Cells % 0 % 11/17/17 05:01 Nucleated RBC % Not Reportable 11/17/17 05:01 Seg Neutrophils # 10.6 K/mm3 (1.8-7.7) H 11/16/17 02:34 Seg Neutrophils # Man 15.8 K/mm3 (1.8-7.7) H 11/17/17 05:01 Band Neutrophils # 1.7 K/mm3 11/17/17 05:01 Lymphocytes # (Manual) 2.3 K/mm3 (1.2-5.4) 11/17/17 05:01 Abs React Lymphs (Man) 0.0 K/mm3 11/17/17 05:01 Monocytes # (Manual) 1.3 K/mm3 (0.0-0.8) H 11/17/17 05:01 Eosinophils # (Manual) 0.0 K/mm3 (0.0-0.4) 11/17/17 05:01 Basophils # (Manual) 0.0 K/mm3 (0.0-0.1) 11/17/17 05:01 Metamyelocytes # 0.0 K/mm3 11/17/17 05:01 Myelocytes # 0.0 K/mm3 11/17/17 05:01 Promyelocytes # 0.0 K/mm3 11/17/17 05:01 Blast Cells # 0.0 K/mm3 11/17/17 05:01 WBC Morphology Not Reportable 11/17/17 05:01 Hypersegmented Neuts Not Reportable 11/17/17 05:01 Hyposegmented Neuts Not Reportable 11/17/17 05:01 Hypogranular Neuts Not Reportable 11/17/17 05:01 Smudge Cells Not Reportable 11/17/17 05:01 Toxic Granulation Not Reportable 11/17/17 05:01 Toxic Vacuolation Not Reportable 11/17/17 05:01 Dohle Bodies Not Reportable 11/17/17 05:01 Pelger-Huet Anomaly Not Reportable 11/17/17 05:01 Reji Rods Not Reportable 11/17/17 05:01 Platelet Estimate Appears normal 11/17/17 05:01 Clumped Platelets Not Reportable 11/17/17 05:01 Plt Clumps, EDTA Not Reportable 11/17/17 05:01 Large Platelets Few 11/17/17 05:01 Giant Platelets Not Reportable 11/17/17 05:01 Platelet Satelliting Not Reportable 11/17/17 05:01 Plt Morphology Comment Not Reportable 11/17/17 05:01 RBC Morphology Not Reportable 11/17/17 05:01 Dimorphic RBCs Not Reportable 11/17/17 05:01 Polychromasia Not Reportable 11/17/17 05:01 Hypochromasia 1+ 11/17/17 05:01 Poikilocytosis Not Reportable 11/17/17 05:01 Anisocytosis 1+ 11/17/17 05:01 Microcytosis Not Reportable 11/17/17 05:01 Macrocytosis Not Reportable 11/17/17 05:01 Spherocytes Not Reportable 11/17/17 05:01 Pappenheimer Bodies Not Reportable 11/17/17 05:01 Sickle Cells Not Reportable 11/17/17 05:01 Target Cells Not Reportable 11/17/17 05:01 Tear Drop Cells Not Reportable 11/17/17 05:01 Ovalocytes Not Reportable 11/17/17 05:01 Helmet Cells Not Reportable 11/17/17 05:01 Castaneda-[place] Bodies Not Reportable 11/17/17 05:01 [place] Rings Not Reportable 11/17/17 05:01 [place] Cells Not Reportable 11/17/17 05:01 Bite Cells Not Reportable 11/17/17 05:01 Crenated Cell Not Reportable 11/17/17 05:01 Elliptocytes Not Reportable 11/17/17 05:01 Acanthocytes (Spur) Not Reportable 11/17/17 05:01 Rouleaux Not Reportable 11/17/17 05:01 Hemoglobin C Crystals Not Reportable 11/17/17 05:01 Schistocytes Not Reportable 11/17/17 05:01 Malaria parasites Not Reportable 11/17/17 05:01 Isaiah Bodies Not Reportable 11/17/17 05:01 Hem Pathologist Commnt No 11/17/17 05:01 PT 12.6 Sec. (12.2-14.9) 11/16/17 02:34 INR 0.90 (0.87-1.13) 11/16/17 02:34 APTT 31.0 Sec. (24.2-36.6) 11/16/17 02:34 D-Dimer 361.00 ng/mlDDU (0-234) H 11/16/17 02:34 Sodium 144 mmol/L (137-145) 11/17/17 05:01 Potassium 3.7 mmol/L (3.6-5.0) 11/17/17 05:01 Chloride 106.1 mmol/L (98-107) 11/17/17 05:01 Carbon Dioxide 25 mmol/L (22-30) 11/17/17 05:01 Anion Gap 17 mmol/L 11/17/17 05:01 BUN 13 mg/dL (7-17) 11/17/17 05:01 Creatinine 0.7 mg/dL (0.7-1.2) 11/17/17 05:01 Estimated GFR > 60 ml/min 11/17/17 05:01 BUN/Creatinine Ratio 19 % 11/17/17 05:01 Glucose 163 mg/dL (65-100) H 11/17/17 05:01 Calcium 9.0 mg/dL (8.4-10.2) 11/17/17 05:01 Total Bilirubin 0.20 mg/dL (0.1-1.2) 11/16/17 02:34 AST 11 units/L (5-40) 11/16/17 02:34 ALT 13 units/L (7-56) 11/16/17 02:34 Alkaline Phosphatase 93 units/L (35-129) 11/16/17 02:34 Total Creatine Kinase 77 units/L (30-135) 11/16/17 11:24 CK-MB (CK-2) 1.8 ng/mL (0.0-4.0) 11/16/17 11:24 CK-MB (CK-2) Rel Index 2.3 (0-4) 11/16/17 11:24 Troponin T < 0.010 ng/mL (0.00-0.029) 11/16/17 11:24 NT-Pro-B Natriuret Pep 381.2 pg/mL (0-900) 11/16/17 02:34 Total Protein 5.9 g/dL (6.3-8.2) L 11/16/17 02:34 Albumin 3.5 g/dL (3.9-5) L 11/16/17 02:34 Albumin/Globulin Ratio 1.5 % 11/16/17 02:34
[2017-11-18] MEDS: LOVENOX SUB-Q SCH (09:39)
[2017-11-18] MEDS: LEVAQUIN 750MG/150ML 750 MG/150 ML BAG IV SCH (09:39)
[2017-11-18] MEDS: MUCINEX ER PO PRN (12:07)
[2017-11-18] MEDS: NORCO 5/325 PO PRN (13:49)
[2017-11-18] MEDS: MILK OF MAGNESIA PO PRN (18:19)
[2017-11-18] MEDS: ROBITUSSIN AC PO PRN (18:20)
[2017-11-19] MEDS: DUONEB *Not for PRN Use IH SCH ×3 (02:19→08:41)
[2017-11-19] MEDS: MUCINEX ER PO PRN (03:01)
[2017-11-19] MEDS: TESSALON PERLES PO SCH (06:19)
[2017-11-19 08:29] VITALS: BP 158/83
[2017-11-19] MEDS: PULMICORT IH SCH (08:41)
[2017-11-19] MEDS ORDERED: MUCINEX ER PO SCH (10:00)
[2017-11-19] MEDS ORDERED: LEVAQUIN PO SCH (10:00)
[2017-11-19] MEDS: LOVENOX SUB-Q SCH (10:13)
--- NOTE | 2017-11-19 10:21 | Discharge Summary ---
Providers - Providers Date of Admission: 11/16/17 05:29 Date of discharge: 11/19/17 Attending physician: CAREY CASTILLO Primary care physician: JENNIFER MAI MD Hospitalization Condition: Fair Hospital course: George is 57 yo with COPD, hypertension presented with shortness of breath and cough. She was diagnosed with Acute on chronic respiratory failure due to COPD exacerbation, started on solumedrol, Duoneb and supplemental Oxygen. She was then admitted to med/surg floor. Patient felt better over few days, shortness of breath resolved, cough improved. She was then discharged home on 11/19/17. Total time spent on discharge, 34 mins Disposition: DC-01 TO HOME OR SELFCARE - Discharge Diagnoses (1) Acute and chronic respiratory failure Status: Acute (2) COPD exacerbation Status: Acute (3) HTN (hypertension), benign Status: Acute (4) Acute bronchitis Status: Acute Core Measure Documentation - Palliative Care Palliative Care/ Comfort Measures: Not Applicable - Core Measures Any of the following diagnoses?: none Exam - Physical Exam Narrative exam: GEN APPEARANCE : Not in acute distress HEENT: Normocephalic, Atraumatic NECK : supple, no JVD LUNGS: Decreased breath sounds bilaterally, no wheeze HEART: S1 and S2 regular, no murmurs, rubs or gallop, ABD: Soft, non tender, non distended, normal bowel sounds EXT: No edema, no clubbing, no cyanosis NEURO: Awake,alert, oriented x 3, no focal neurological signs - Constitutional Vitals: Temp Pulse Resp BP Pulse Ox 98.9 F 94 H 18 158/83 98 11/19/17 07:50 11/19/17 08:45 11/19/17 08:45 11/19/17 07:50 11/19/17 08:44 Plan Activity: no restrictions Diet: low fat, low cholesterol, low salt Additional Instructions: 1.Follow up with PCP in 1 week. 2.Follow up with Dr. Cox in 1 week. 3.Continue home Oxygen at 2 l/min Follow up with: PRIMARY CARE, [Primary Care Provider] - 3-5 Days Prescriptions: Azithromycin [Zithromax] 250 mg PO DAILY 5 Days tablet Benzonatate [Tessalon Perles] 100 mg PO Q8HR PRN #20 capsule PRN Reason: Cough guaiFENesin [Robitussin] 200 mg PO Q4HR PRN #1 bottle PRN Reason: Cough HYDROcodone/APAP 5-325 [[place] 5-325 mg TAB] 1 each PO Q6H PRN #10 tablet PRN Reason: Pain, Moderate (4-6) Ipratropium/Albuterol Sulfate [DUONEB *Not for PRN Use*] 1 ampul IH Q6HRT 30 Days ampul.neb
[2017-11-19] MEDS: NORCO 5/325 PO PRN (13:00)
[2017-11-19] MEDS ORDERED: DUONEB *Not for PRN Use IH SCH (14:00)
== END 2017-11-19 14:15 | disposition home or self-care (01) | DRG 189 ==
LOC: ED 01:50 → 3A 05:29
PROVIDERS: ADMIT Internal Medicine; ATTEND Internal Medicine
PROC: 3E0234Z Introduction of Serum, Toxoid and Vaccine into Muscle, Percutaneous Approach (ICD-10-PCS; principal; 2017-11-17)
DX: J96.20 Acute and chronic respiratory failure, unspecified whether with hypoxia or hypercapnia (principal); J44.1 Chronic obstructive pulmonary disease with (acute) exacerbation; I10 Essential (primary) hypertension; E66.9 Obesity, unspecified; Z71.3 Dietary counseling and surveillance; F17.210 Nicotine dependence, cigarettes, uncomplicated; Z82.49 Family history of ischemic heart disease and other diseases of the circulatory system; Z23 Encounter for immunization; Z68.35 Body mass index [BMI] 35.0-35.9, adult; Z71.6 Tobacco abuse counseling; D72.828 Other elevated white blood cell count
CPT/HCPCS: 36415; 71010; 71275; 80048; 80053; 82550; 82553; 83880; 84484; 85007; 85025; 85027; 85379; 85610; 85730; 87040; 90686; 90732; 93005; 93010; 94640; 94760; 96374; 99406; J1650; J1956; J2930; Q9967

== ENCOUNTER 2018-03-17 13:47 | Emergency (ER) | payer MEDICAID ==
--- NOTE | 2018-03-17 14:26 | Emergency Department Report ---
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 He feels like a bone stuck in her throat. Complains of feeling anxious that she feels like her breath is going to be cut off. Foreign body sensation in her throat. Able to speak clearly without respiratory distress or stridor but states she is anxious because she just wants the bone out. orders: soft tissue lateral pending
--- NOTE | 2018-03-17 15:23 | XRay Report ---
AP AND LATERAL SOFT TISSUES OF THE NECK: History: Foreign body sensation after eating chicken. There is suggestion of abnormal linear density within the vallecula at the base of the tongue. This may represent a foreign body. Consider further evaluation with CT or barium swallow. The remaining soft tissue structures of the neck are within normal limits. IMPRESSION: Questionable foreign body within the vallecula.
--- NOTE | 2018-03-17 16:31 | Emergency Department Report ---
ED General Adult HPI - General Chief complaint: Skin/Abscess/Foreign Body Stated complaint: SOB/FROEGIN BODY IN THROAT Time Seen by Provider: 03/17/18 14:24 Source: patient, RN notes reviewed Mode of arrival: Ambulatory Limitations: No Limitations - History of Present Illness Initial comments: This is a 57-year-old female who is previously unknown to this provider. She endorses a past medical history of COPD, and reports typically being on supplemental oxygen. She presents to the ER with a complaint of painless foreign body sensation in the hypopharynx, which started just prior to arrival, after she ate chicken with a bone in it. Her symptoms are constant, they do not radiate anywhere, they have no exacerbating or relieving factors. She denies other complaints with the exception of shortness of breath, which has since resolved. -: Sudden Location: mouth, neck Radiation: non-radiation Consistency: constant Improves with: none Worsens with: none Associated Symptoms: denies other symptoms, shortness of breath - Related Data Home Medications Medication Instructions Recorded Confirmed Last Taken Albuterol Sulfate [Proventil Hfa] 2 puff IH Q4-6H PRN 11/18/17 11/18/17 Unknown Budesonide/Formoterol Fumarate 2 puff IH DAILY 11/18/17 11/18/17 Unknown [Symbicort 160-4.5 Mcg Inhaler] Previous Rx's Medication Instructions Recorded Last Taken Type Azithromycin [Zithromax] 250 mg PO DAILY 5 Days tablet 11/19/17 Unknown Rx Benzonatate [Tessalon Perles] 100 mg PO Q8HR PRN #20 capsule 11/19/17 Unknown Rx HYDROcodone/APAP 5-325 [[place] 1 each PO Q6H PRN #10 tablet 11/19/17 Unknown Rx 5-325 mg TAB] Ipratropium/Albuterol Sulfate 1 ampul IH Q6HRT 30 Days ampul.neb 11/19/17 Unknown Rx [DUONEB *Not for PRN Use*] guaiFENesin [Robitussin] 200 mg PO Q4HR PRN #1 bottle 11/19/17 Unknown Rx Allergies Allergy/AdvReac Type Severity Reaction Status Date / Time No Known Allergies Allergy Verified 05/16/16 09:50 ED Review of Systems ROS: Stated complaint: SOB/FROEGIN BODY IN THROAT Other details as noted in HPI Comment: All other systems reviewed and negative ED Past Medical Hx - Past Medical History Hx Asthma: Yes Hx COPD: Yes - Surgical History Past Surgical History?: No - Social History Smoking Status: Current Every Day Smoker Substance Use Type: None - Medications Home Medications: Home Medications Medication Instructions Recorded Confirmed Last Taken Type Albuterol Sulfate [Proventil Hfa] 2 puff IH Q4-6H PRN 11/18/17 11/18/17 Unknown History Budesonide/Formoterol Fumarate 2 puff IH DAILY 11/18/17 11/18/17 Unknown History [Symbicort 160-4.5 Mcg Inhaler] Azithromycin [Zithromax] 250 mg PO DAILY 5 Days tablet 11/19/17 Unknown Rx Benzonatate [Tessalon Perles] 100 mg PO Q8HR PRN #20 capsule 11/19/17 Unknown Rx HYDROcodone/APAP 5-325 [[place] 1 each PO Q6H PRN #10 tablet 11/19/17 Unknown Rx 5-325 mg TAB] Ipratropium/Albuterol Sulfate 1 ampul IH Q6HRT 30 Days ampul.neb 11/19/17 Unknown Rx [DUONEB *Not for PRN Use*] guaiFENesin [Robitussin] 200 mg PO Q4HR PRN #1 bottle 11/19/17 Unknown Rx ED Physical Exam - General Limitations: No Limitations General appearance: alert, in no apparent distress - Head Head exam: Present: atraumatic, normocephalic - Eye Eye exam: Present: normal appearance, EOMI. Absent: nystagmus - ENT ENT exam: Present: normal exam, normal orophraynx, mucous membranes moist, normal external ear exam (there is no stridor, the patient is speaking in full sentences) - Neck Neck exam: Present: normal inspection, full ROM. Absent: tenderness, meningismus, lymphadenopathy, thyromegaly - Respiratory Respiratory exam: Present: decreased breath sounds. Absent: respiratory distress, wheezes, rales, rhonchi, stridor, chest wall tenderness - Cardiovascular Cardiovascular Exam: Present: regular rate, normal rhythm, normal heart sounds. Absent: bradycardia, tachycardia, irregular rhythm, systolic murmur, diastolic murmur, rubs, gallop - GI/Abdominal GI/Abdominal exam: Present: soft, normal bowel sounds. Absent: distended, tenderness, guarding, rebound, rigid, pulsatile mass - Extremities Exam Extremities exam: Present: normal inspection, full ROM, normal capillary refill. Absent: pedal edema, joint swelling, calf tenderness - Back Exam Back exam: Present: normal inspection, full ROM. Absent: tenderness, CVA tenderness (R), paraspinal tenderness, vertebral tenderness - Neurological Exam Neurological exam: Present: alert, oriented X3, CN II-XII intact, other ( Extraocular movements intact. Tongue midline. No facial droop. Facial sensation intact to light touch in the V1, V2, V3 distribution bilaterally. 5 and 5 strength in 4 extremities.. Sensation is intact to light touch in 4 extremities.). Absent: motor sensory deficit - Psychiatric Psychiatric exam: Present: anxious - Skin Skin exam: Present: warm, dry, intact, normal color. Absent: rash ED Course Vital Signs 03/17/18 03/17/18 03/17/18 13:55 14:13 16:15 Temperature 97.9 F Pulse Rate 95 H 94 H 78 Respiratory 22 22 26 H Rate Blood Pressure 188/101 192/106 Blood Pressure 197/116 [Left] O2 Sat by Pulse 97 96 97 Oximetry 03/17/18 03/17/18 03/17/18 16:30 16:45 17:00 Temperature Pulse Rate 81 77 80 Respiratory 28 H 16 19 Rate Blood Pressure 179/94 179/94 160/86 Blood Pressure [Left] O2 Sat by Pulse 98 95 97 Oximetry 03/17/18 17:15 Temperature Pulse Rate 83 Respiratory 16 Rate Blood Pressure 160/86 Blood Pressure [Left] O2 Sat by Pulse 98 Oximetry ED Medical Decision Making - Lab Data Vital Signs 03/17/18 03/17/18 03/17/18 13:55 14:13 16:15 Temperature 97.9 F Pulse Rate 95 H 94 H 78 Respiratory 22 22 26 H Rate Blood Pressure 188/101 192/106 Blood Pressure 197/116 [Left] O2 Sat by Pulse 97 96 97 Oximetry 03/17/18 03/17/18 03/17/18 16:30 16:45 17:00 Temperature Pulse Rate 81 77 80 Respiratory 28 H 16 19 Rate Blood Pressure 179/94 179/94 160/86 Blood Pressure [Left] O2 Sat by Pulse 98 95 97 Oximetry 03/17/18 17:15 Temperature Pulse Rate 83 Respiratory 16 Rate Blood Pressure 160/86 Blood Pressure [Left] O2 Sat by Pulse 98 Oximetry - Radiology Data Radiology results: report reviewed, image reviewed X-ray of the chest, read by radiology: No acute disease X-ray of the neck, read by radiology: Questionable foreign body, in the vallecula. - Medical Decision Making Differential diagnosis, including not limited to: Hypopharyngeal foreign body, oral foreign body, globus sensation Assessment and plan: 57-year-old female status post chicken bone ingestion with probable bony foreign body in the hypopharynx between the tongue and the vallecula. She is afebrile with reassuring vital signs, is not experiencing stridor, and protecting her airway at this time. This department Hospital does not have access to endoscopic procedure or tools or personnel that can remove this foreign body safely. There is no otolaryngology specialist available for this hospitals consultation. Therefore, the patient will be transferred to the [facility], where the otolaryngology specialist fashion stylist, Dr. Beckman, graciously accepted the patient as an ER to ER transfer, with otolaryngology to evaluate the patient. This was explained to the patient. Critical care attestation.: If time is entered above; I have spent that time in minutes in the direct care of this critically ill patient, excluding procedure time. ED Disposition Clinical Impression: Foreign body alimentary tract Disposition: [id number]/TX-[id number] ANOTHER TYPE [facility] Is pt being admited?: No Does the pt Need Aspirin: No Condition: Good
--- NOTE | 2018-03-17 17:24 | XRay Report ---
FINAL REPORT PROCEDURE: XR CHEST 1V AP TECHNIQUE: Chest radiograph anteroposterior view. CPT 00373 HISTORY: Difficulty breathing COMPARISON: Prior chest x-ray 11/16/2017 FINDINGS: Heart: Normal. Mediastinum/Vessels: Normal. Lungs/Pleural space: Normal. Bony thorax: No acute osseous abnormality. Life support devices: None. IMPRESSION: Negative exam..
[2018-03-17 19:00] VITALS: BP 162/84
== END 2018-03-17 19:00 | disposition other institution (70) ==
LOC: ED 13:47
DX: T18.8XXA Foreign body in other parts of alimentary tract, initial encounter (principal); J44.9 Chronic obstructive pulmonary disease, unspecified; F17.200 Nicotine dependence, unspecified, uncomplicated; X58.XXXA Exposure to other specified factors, initial encounter; Y93.89 Activity, other specified; Y92.89 Other specified places as the place of occurrence of the external cause; Y99.8 Other external cause status
CPT/HCPCS: 70360; 71045

== ENCOUNTER 2019-07-12 02:14 | Emergency (ER) | payer MEDICAID ==
[2019-07-12] MEDS ORDERED: TYLENOL PO ONE (03:03)
[2019-07-12 04:00] LABS: Bilirubin,Urine NEG (Negative); Blood,Urine SM (Negative); Color,Urine Yellow (Yellow); Mucus,Urine 2+ /HPF; Protein,Urine <15 mg/dL mg/dL (Negative); Urobilinogen,Urine < 2.0 mg/dL (<2.0)
[2019-07-12] MEDS ORDERED: XYLOCAINE 1% MPF 5 mL INFILTRATI ONE (04:24)
[2019-07-12] MEDS ORDERED: ROCEPHIN IM ONE (04:24)
[2019-07-12] MEDS ORDERED: DELTASONE PO ONE (04:28)
[2019-07-12] MEDS ORDERED: TORADOL IM ONE (04:28)
--- NOTE | 2019-07-12 04:29 | Emergency Department Report ---
ED General Adult HPI - General Chief complaint: Earache Stated complaint: LEFT EAR HURTS AND LOWER BACK PAIN,LIGHT HEADED Time Seen by Provider: 07/12/19 02:55 Source: patient Mode of arrival: Ambulatory Limitations: No Limitations - History of Present Illness Initial comments: Patient is a 58-year-old -[place] female with a history of hypertension, asthma and COPD and on 2 L on nasal cannula home oxygen, and presents with a complaint of acute onset persistent nontraumatic low back pain with urinary frequency and urgency for the last 2 days. Patient also complains of severe left ear pain on the left lateral cervical lymphadenopathy. Patient denies dizziness, chest pain, shortness of breath, cough, nasal and sinus congestion, sore throat, hearing loss, abdominal pain, dysuria, fever or chills, vaginal bleeding, traumatic injury, numbness and tingling or weakness of lower extremities bilaterally, change in vision, lifting or urinary and bowel incontinence or saddle paresthesia. MD Complaint: low back pain; urinary urgency, left ear pain -: Sudden, days(s) (2) Location: face, back Radiation: non-radiation Severity scale (0 -10): 8 Quality: aching, sharp Consistency: constant Improves with: none Worsens with: none Associated Symptoms: denies other symptoms. denies: confusion, chest pain, cough, diaphoresis, fever/chills, headaches, loss of appetite, malaise, nausea/vomiting, seizure, shortness of breath, syncope Treatments Prior to Arrival: none - Related Data Home Medications Medication Instructions Recorded Confirmed Last Taken Albuterol Sulfate [Proventil Hfa] 2 puff IH Q4-6H PRN 11/18/17 11/18/17 Unknown Budesonide/Formoterol Fumarate 2 puff IH DAILY 11/18/17 11/18/17 Unknown [Symbicort 160-4.5 Mcg Inhaler] Previous Rx's Medication Instructions Recorded Last Taken Type Azithromycin [Zithromax] 250 mg PO DAILY 5 Days tablet 11/19/17 Unknown Rx Benzonatate [Tessalon Perles] 100 mg PO Q8HR PRN #20 capsule 11/19/17 Unknown Rx HYDROcodone/APAP 5-325 [[place] 1 each PO Q6H PRN #10 tablet 11/19/17 Unknown Rx 5-325 mg TAB] Ipratropium/Albuterol Sulfate 1 ampul IH Q6HRT 30 Days ampul.neb 11/19/17 Unknown Rx [DUONEB *Not for PRN Use*] guaiFENesin [Robitussin] 200 mg PO Q4HR PRN #1 bottle 11/19/17 Unknown Rx Amoxicillin/Potassium Clav 1 each PO Q12H #20 tablet 07/12/19 Unknown Rx [Augmentin 875-125 Tablet] Meloxicam [Mobic] 7.5 mg PO QDAY #30 tablet 07/12/19 Unknown Rx Ofloxacin 0.3% [Floxin 0.3% Otic] 1 drop OT DAILY #1 bottle 07/12/19 Unknown Rx tiZANidine [Zanaflex 4mg TAB] 4 mg PO Q8H PRN #15 tablet 07/12/19 Unknown Rx traMADol [Ultram] 50 mg PO Q6HR PRN #15 tablet 07/12/19 Unknown Rx Allergies Allergy/AdvReac Type Severity Reaction Status Date / Time No Known Allergies Allergy Verified 05/16/16 09:50 ED Review of Systems ROS: Stated complaint: LEFT EAR HURTS AND LOWER BACK PAIN,LIGHT HEADED Other details as noted in HPI Constitutional: denies: chills, fever Eyes: denies: eye pain, eye discharge, vision change ENT: ear pain (left). denies: throat pain, dental pain, hearing loss, epistaxis, congestion Respiratory: denies: cough, shortness of breath, wheezing Cardiovascular: denies: chest pain, palpitations Endocrine: no symptoms reported Gastrointestinal: denies: abdominal pain, nausea, diarrhea Genitourinary: denies: urgency, dysuria, discharge Musculoskeletal: back pain, arthralgia, myalgia. denies: joint swelling Skin: denies: rash, lesions Neurological: denies: headache, weakness, paresthesias Psychiatric: denies: anxiety, depression Hematological/Lymphatic: denies: easy bleeding, easy bruising ED Past Medical Hx - Past Medical History Previous Medical History?: Yes Hx Hypertension: Yes Hx Asthma: Yes Hx COPD: Yes (2L [place] home 02) - Surgical History Past Surgical History?: No - Social History Smoking Status: Current Every Day Smoker Substance Use Type: None - Medications Home Medications: Home Medications Medication Instructions Recorded Confirmed Last Taken Type Albuterol Sulfate [Proventil Hfa] 2 puff IH Q4-6H PRN 11/18/17 11/18/17 Unknown History Budesonide/Formoterol Fumarate 2 puff IH DAILY 11/18/17 11/18/17 Unknown History [Symbicort 160-4.5 Mcg Inhaler] Azithromycin [Zithromax] 250 mg PO DAILY 5 Days tablet 11/19/17 Unknown Rx Benzonatate [Tessalon Perles] 100 mg PO Q8HR PRN #20 capsule 11/19/17 Unknown Rx HYDROcodone/APAP 5-325 [[place] 1 each PO Q6H PRN #10 tablet 11/19/17 Unknown Rx 5-325 mg TAB] Ipratropium/Albuterol Sulfate 1 ampul IH Q6HRT 30 Days ampul.neb 11/19/17 Unknown Rx [DUONEB *Not for PRN Use*] guaiFENesin [Robitussin] 200 mg PO Q4HR PRN #1 bottle 11/19/17 Unknown Rx Amoxicillin/Potassium Clav 1 each PO Q12H #20 tablet 07/12/19 Unknown Rx [Augmentin 875-125 Tablet] Meloxicam [Mobic] 7.5 mg PO QDAY #30 tablet 07/12/19 Unknown Rx Ofloxacin 0.3% [Floxin 0.3% Otic] 1 drop OT DAILY #1 bottle 07/12/19 Unknown Rx tiZANidine [Zanaflex 4mg TAB] 4 mg PO Q8H PRN #15 tablet 07/12/19 Unknown Rx traMADol [Ultram] 50 mg PO Q6HR PRN #15 tablet 07/12/19 Unknown Rx ED Physical Exam - General Limitations: No Limitations General appearance: alert, in no apparent distress - Head Head exam: Present: atraumatic, normocephalic, normal inspection - Eye Eye exam: Present: normal appearance, PERRL, EOMI. Absent: scleral icterus, conjunctival injection, nystagmus, periorbital swelling, periorbital tenderness Pupils: Present: normal accommodation. Absent: unequal - ENT ENT exam: Present: normal orophraynx, mucous membranes moist, other (Left Tympanic membrane erythematous, buldging and tenderness) - Neck Neck exam: Present: normal inspection, full ROM, lymphadenopathy. Absent: tenderness, meningismus, thyromegaly - Respiratory Respiratory exam: Present: normal lung sounds bilaterally. Absent: respiratory distress, wheezes, rales, rhonchi, accessory muscle use, prolonged expiratory - Cardiovascular Cardiovascular Exam: Present: regular rate, normal rhythm, normal heart sounds. Absent: systolic murmur, diastolic murmur, rubs, gallop - GI/Abdominal GI/Abdominal exam: Present: soft, normal bowel sounds. Absent: tenderness, guarding, rebound, hyperactive bowel sounds, hypoactive bowel sounds, organomegaly - Rectal Rectal exam: Present: deferred - Extremities Exam Extremities exam: Present: normal inspection, full ROM, normal capillary refill. Absent: tenderness, pedal edema, joint swelling - Back Exam Back exam: Present: normal inspection, full ROM, tenderness (palpable lumbosacral paraspinal musculoskeletal tenderness), muscle spasm, paraspinal tenderness - Neurological Exam Neurological exam: Present: alert, oriented X3, CN II-XII intact, normal gait, reflexes normal - Psychiatric Psychiatric exam: Present: normal affect, normal mood - Skin Skin exam: Present: warm, dry, intact, normal color. Absent: rash ED Course Vital Signs 07/12/19 07/12/19 02:20 04:09 Temperature 98.3 F Pulse Rate 93 H Respiratory 22 20 Rate Blood Pressure 165/90 O2 Sat by Pulse 97 Oximetry - Reevaluation(s) Reevaluation #1: 07/12/19 04:31 This is a 58-year-old -[place] female who presented to the ED with complaint of left ear pain, low back pain and urinary frequency. In the ED, the patient is alert and oriented 3 and is not in distress with stable vital signs. Urinalysis shows significant urinary tract infection. Patient was nilam ated for pain and also given antibiotic treatment in the ED initially. Patient was discharged home on antibiotics and advised follow-up with her primary care physician in 5-7 days for reevaluation or return to the ED immediately if symptoms get worse. ED Medical Decision Making - Medical Decision Making This is a 58-year-old -[place] female who presented to the ED with complaint of left ear pain, low back pain and urinary frequency. In the ED, the patient is alert and oriented 3 and is not in distress with stable vital signs. Urinalysis shows significant urinary tract infection. Patient was treated for pain and also given antibiotic treatment in the ED initially. Patient was discharged home on antibiotics and advised follow-up with her primary care physician in 5-7 days for reevaluation or return to the ED immediately if symptoms get worse. - Differential Diagnosis acute UTI; Muscle spasm of back; Acute otitis media, low back pain Critical care attestation.: If time is entered above; I have spent that time in minutes in the direct care of this critically ill patient, excluding procedure time. ED Disposition Clinical Impression: Acute urinary tract infection, Spasm of muscle of lower back Acute bacterial otitis media Qualifiers: Laterality: left Qualified Code(s): H66.92 - Otitis media, unspecified, left ear Disposition: DC- TO HOME OR SELFCARE Is pt being admited?: No Does the pt Need Aspirin: No Condition: Stable Instructions: Muscle Spasm (ED), Otitis Media (ED), Low Back Strain (ED), Urinary Tract Infection in Women (ED) Additional Instructions: Take medications with food, drink fluids and follow-up with your primary care physician in 7-10 days for reevaluation. Addendum to ED immediately if symptoms get worse. Prescriptions: Amoxicillin/Potassium Clav [Augmentin 875-125 Tablet] 1 each PO Q12H #20 tablet Ofloxacin 0.3% [Floxin 0.3% Otic] 1 drop OT DAILY #1 bottle Meloxicam [Mobic] 7.5 mg PO QDAY #30 tablet traMADol [Ultram] 50 mg PO Q6HR PRN #15 tablet PRN Reason: Pain tiZANidine [Zanaflex 4mg TAB] 4 mg PO Q8H PRN #15 tablet PRN Reason: Pain , Severe (7-10) Referrals: TRAVIS DAILEY MD [Primary Care Provider] - 3-5 Days Time of Disposition: 04:35 Print Language: ESTONIAN
[2019-07-12 06:50] VITALS: BP 130/94
== END 2019-07-12 05:20 | disposition home or self-care (01) ==
LOC: ED 02:14
DX: N39.0 Urinary tract infection, site not specified (principal); M62.830 Muscle spasm of back; H66.92 Otitis media, unspecified, left ear; I10 Essential (primary) hypertension; J44.9 Chronic obstructive pulmonary disease, unspecified; F17.200 Nicotine dependence, unspecified, uncomplicated; Z79.899 Other long term (current) drug therapy
CPT/HCPCS: 81001; 96372; 99283; J0696; J1885; J7512

== ENCOUNTER 2019-07-26 13:56 | Emergency (ER) | payer MEDICAID ==
[2019-07-26] MEDS ORDERED: DUONEB *Not for PRN Use IH ONE ×2 (14:04→14:05)
[2019-07-26] MEDS ORDERED: NACL 0.9% 1000 ML 1,000 ML IV ONE (14:06)
--- NOTE | 2019-07-26 14:09 | Emergency Department Report ---
ED Shortness of Breath HPI - General Stated Complaint: COPD/HTN Time Seen by Provider: 07/26/19 14:04 - History of Present Illness Initial Comments: This is a 58-year-old female with a history of COPD currently unable to provide much history as she is on CPAP from the field. Medics stated that the patient was found to be in respiratory distress with a pulse oximetry of 88. They provided CPAP, 5 mg of albuterol, 2 g of magnesium and 125 of Solu-Medrol. Patient states that she is improved. She is looking like she may, POSITIVE pressure assist. She is able to tell me that she hasn't experienced recent fever or chills or chest pain. She denies leg pain or swelling. She tells me that she is still smoking. MD Complaint: shortness of breath (wheezing) -: days(s) Severity: severe Known History Of: COPD - Related Data Home Medications Medication Instructions Recorded Confirmed Last Taken Budesonide/Formoterol Fumarate 2 puff IH DAILY 11/18/17 11/18/17 Unknown [Symbicort 160-4.5 Mcg Inhaler] Previous Rx's Medication Instructions Recorded Last Taken Type Azithromycin [Zithromax] 250 mg PO DAILY 5 Days tablet 11/19/17 Unknown Rx Benzonatate [Tessalon Perles] 100 mg PO Q8HR PRN #20 capsule 11/19/17 Unknown Rx HYDROcodone/APAP 5-325 [[place] 1 each PO Q6H PRN #10 tablet 11/19/17 Unknown Rx 5-325 mg TAB] guaiFENesin [Robitussin] 200 mg PO Q4HR PRN #1 bottle 11/19/17 Unknown Rx Amoxicillin/Potassium Clav 1 each PO Q12H #20 tablet 07/12/19 Unknown Rx [Augmentin 875-125 Tablet] Meloxicam [Mobic] 7.5 mg PO QDAY #30 tablet 07/12/19 Unknown Rx Ofloxacin 0.3% [Floxin 0.3% Otic] 1 drop OT DAILY #1 bottle 07/12/19 Unknown Rx tiZANidine [Zanaflex 4mg TAB] 4 mg PO Q8H PRN #15 tablet 07/12/19 Unknown Rx traMADol [Ultram] 50 mg PO Q6HR PRN #15 tablet 07/12/19 Unknown Rx Albuterol Sulfate [Proventil Hfa] 2 puff IH Q4-6H PRN #1 hfa.aer.ad 07/26/19 Unknown Rx Ipratropium/Albuterol Sulfate 1 ampul IH Q6HRT 30 Days ampul.neb 07/26/19 Unk nown Rx [DUONEB *Not for PRN Use*] predniSONE [Deltasone] 60 mg PO QDAY #20 tab 07/26/19 Unknown Rx Allergies Allergy/AdvReac Type Severity Reaction Status Date / Time No Known Allergies Allergy Verified 05/16/16 09:50 ED Review of Systems ROS: Stated complaint: COPD/HTN Other details as noted in HPI Comment: Unobtainable due to pts medical conditions ED Past Medical Hx - Past Medical History Hx Hypertension: Yes Hx Asthma: Yes Hx COPD: Yes (2L [place] home 02) - Social History Smoking Status: Current Every Day Smoker Substance Use Type: None - Medications Home Medications: Home Medications Medication Instructions Recorded Confirmed Last Taken Type Budesonide/Formoterol Fumarate 2 puff IH DAILY 11/18/17 11/18/17 Unknown History [Symbicort 160-4.5 Mcg Inhaler] Azithromycin [Zithromax] 250 mg PO DAILY 5 Days tablet 11/19/17 Unknown Rx Benzonatate [Tessalon Perles] 100 mg PO Q8HR PRN #20 capsule 11/19/17 Unknown Rx HYDROcodone/APAP 5-325 [[place] 1 each PO Q6H PRN #10 tablet 11/19/17 Unknown Rx 5-325 mg TAB] guaiFENesin [Robitussin] 200 mg PO Q4HR PRN #1 bottle 11/19/17 Unknown Rx Amoxicillin/Potassium Clav 1 each PO Q12H #20 tablet 07/12/19 Unknown Rx [Augmentin 875-125 Tablet] Meloxicam [Mobic] 7.5 mg PO QDAY #30 tablet 07/12/19 Unknown Rx Ofloxacin 0.3% [Floxin 0.3% Otic] 1 drop OT DAILY #1 bottle 07/12/19 Unknown Rx tiZANidine [Zanaflex 4mg TAB] 4 mg PO Q8H PRN #15 tablet 07/12/19 Unknown Rx traMADol [Ultram] 50 mg PO Q6HR PRN #15 tablet 07/12/19 Unknown Rx Albuterol Sulfate [Proventil Hfa] 2 puff IH Q4-6H PRN #1 hfa.aer.ad 07/26/19 Unknown Rx Ipratropium/Albuterol Sulfate 1 ampul IH Q6HRT 30 Days ampul.neb 07/26/19 Unknown Rx [DUONEB *Not for PRN Use*] predniSONE [Deltasone] 60 mg PO QDAY #20 tab 07/26/19 Unknown Rx ED Physical Exam - General General appearance: alert, in no apparent distress - Head Head exam: Present: atraumatic, normocephalic - Eye Eye exam: Present: normal appearance. Absent: scleral icterus - ENT ENT exam: Present: mucous membranes moist - Neck Neck exam: Present: normal inspection - Respiratory Respiratory exam: Present: normal lung sounds bilaterally, accessory muscle use, other (patient is moving air amply). Absent: respiratory distress - Cardiovascular Cardiovascular Exam: Present: regular rate, normal rhythm. Absent: systolic m urmur, diastolic murmur, rubs, gallop - GI/Abdominal GI/Abdominal exam: Present: soft, normal bowel sounds. Absent: distended, tenderness, guarding, rebound, rigid - Extremities Exam Extremities exam: Present: normal inspection. Absent: pedal edema, calf tenderness - Back Exam Back exam: Present: normal inspection - Neurological Exam Neurological exam: Present: alert, oriented X3, CN II-XII intact. Absent: motor sensory deficit - Psychiatric Psychiatric exam: Present: normal affect, normal mood - Skin Skin exam: Present: warm, dry, intact, normal color. Absent: rash ED Course Vital Signs 07/26/19 14:14 Temperature 98.3 F Pulse Rate 76 Respiratory 16 Rate Blood Pressure 149/80 Blood Pressure 149/80 [Right] O2 Sat by Pulse 86 Oximetry - Reevaluation(s) Reevaluation #1: Patient is improved. She is satting 95% on 2 L O2 which is her home setting. She is offered admission to the hospital. She declines this. I have strongly emphasized to her not to go home and smoke. She says that she will not. She has mental capacity to refuse admission. She is moving air well now. She states that she had run out of medicine for her machine. 07/26/19 15:46 ED Medical Decision Making - Lab Data Result diagrams: 07/26/19 14:21 Laboratory Results - last 24 hr 07/26/19 07/26/19 14:21 14:21 PT 12.6 INR 0.97 APTT 27.9 Sodium 142 Potassium 4.2 Chloride 106.6 Carbon Dioxide 26 Anion Gap 14 BUN 14 Creatinine 0.7 Estimated GFR > 60 BUN/Creatinine Ratio 20 Glucose 110 H Calcium 8.6 Total Bilirubin < 0.20 Direct Bilirubin < 0.2 Indirect Bilirubin 0.0 AST 13 ALT 13 Alkaline Phosphatase 101 Total Creatine Kinase 157 H CK-MB (CK-2) 3.8 CK-MB (CK-2) Rel Index 2.4 Troponin T < 0.010 NT-Pro-B Natriuret Pep 21.37 Total Protein 7.1 Albumin 3.7 L Albumin/Globulin Ratio 1.1 - Radiology Data Radiology results: image reviewed interpreted by me: Chest x-ray no acute process Critical care attestation.: If time is entered above; I have spent that time in minutes in the direct care of this critically ill patient, excluding procedure time. ED Disposition Clinical Impression: COPD exacerbation Disposition: DC- TO HOME OR SELFCARE Is pt being admited?: No Does the pt Need Aspirin: No Condition: Stable Instructions: Chronic Bronchitis (ED), Chronic Obstructive Pulmonary Disease (ED), How to Stop Smoking (ED) Additional Instructions: Please do not smoke. You will and up back in the emergency department quite quickly. Return to the emergency department if your symptoms worsen or if you feel that you would be better off being admitted as I have recommended. Prescriptions: predniSONE [Deltasone] 60 mg PO QDAY #20 tab Ipratropium/Albuterol Sulfate [DUONEB *Not for PRN Use*] 1 ampul IH Q6HRT 30 Days ampul.neb Albuterol Sulfate [Proventil Hfa] 2 puff IH Q4-6H PRN #1 hfa.aer.ad PRN Reason: Shortness Of Breath Referrals: usual, physician's [Other] - 24 Hours [facility] [Provider Group] - as needed (If unable to see usual physicians.) Time of Disposition: 15:50
--- NOTE | 2019-07-26 14:37 | XRay Report ---
CHEST 1 VIEW INDICATION / CLINICAL INFORMATION: Difficulty breathing. COMPARISON: 03/17/2018 FINDINGS: SUPPORT DEVICES: None. HEART / MEDIASTINUM: No significant abnormality. LUNGS / PLEURA: No significant pulmonary or pleural abnormality. No pneumothorax. ADDITIONAL FINDINGS: No significant additional findings. IMPRESSION: 1. No acute findings. No interval change. Signer Name: Kate Muñoz MD Signed: 07/26/2019 2:32 PM Workstation Name: [id number]
[2019-07-26 14:46] LABS: INR 0.97 (0.87-1.13)
[2019-07-26 14:47] LABS: Partial Thromboplastin Time 27.9 Sec. (24.2-36.6)
[2019-07-26 14:49] LABS: Creatine Kinase MB 3.8 ng/mL (0.0-4.0)
[2019-07-26 14:50] LABS: Alanine Aminotransferase 13 units/L (7-56); Albumin 3.7 g/dL (3.9-5); BUN/Creatinine Ratio 20; Bilirubin,Direct < 0.2 mg/dL (0-0.2); Blood Urea Nitrogen 14 mg/dL (7-17); Calcium 8.6 mg/dL (8.4-10.2); Hemolysis Index 3
[2019-07-26 16:39] VITALS: BP 132/65
== END 2019-07-26 16:40 | disposition home or self-care (01) ==
LOC: ED 13:56
DX: J44.1 Chronic obstructive pulmonary disease with (acute) exacerbation (principal); I10 Essential (primary) hypertension; F17.200 Nicotine dependence, unspecified, uncomplicated; Z79.899 Other long term (current) drug therapy
CPT/HCPCS: 36415; 71045; 80048; 80076; 82550; 82553; 83880; 84484; 85610; 85730; 93005; 93010; 94640; 94644; 99284; J7030

== ENCOUNTER 2019-10-09 16:28 | Emergency (ER) | payer MEDICAID ==
[2019-10-09 16:44] VITALS: BP 147/94
--- NOTE | 2019-10-09 16:46 | Event Note ---
ED Screening Note Date of service: 10/09/19 Time: 16:41 ED Screening Note: This is a 58 y.o. F. that present to the ER with pressure to chest and SOB. Patient states it feel like someone is standing on her chest. PMH of COPD on oxygen 2L, HTN, arthritis, and anxiety Current 4-5 cigarettes per day. This initial assessment/diagnostic orders/clinical plan/treatment(s) is/are subject to change based on patients health status, clinical progression and re- assessment by fellow clinical providers in the ED. Further treatment and workup at subsequent clinical providers discretion. Patient/guardian urged not to elope from the ED as their condition may be serious if not clinically assessed and managed. Initial orders include: CXR and labs
--- NOTE | 2019-10-09 17:28 | XRay Report ---
CHEST 2 VIEWS INDICATION / CLINICAL INFORMATION: Dyspnea and chest discomfort. COMPARISON: Chest x-ray on 07/26/2019 FINDINGS: SUPPORT DEVICES: None. HEART / MEDIASTINUM: Normal heart size. Atherosclerosis in the thoracic aorta. LUNGS / PLEURA: No significant pulmonary or pleural abnormality. No pneumothorax. ADDITIONAL FINDINGS: No significant additional findings. IMPRESSION: 1. No acute findings. Signer Name: Jean Graves MD Signed: 10/09/2019 5:23 PM Workstation Name: [id number]
[2019-10-09 17:38] LABS: Basophils # (Auto) 0.1 K/mm3 (0.0-0.1); Eosinophils # (Auto) 0.2 K/mm3 (0.0-0.4); Eosinophils % (Auto) 2.6 % (0.0-4.3); Hematocrit 39.6 % (30.3-42.9); Hemoglobin 12.8 gm/dl (10.1-14.3); Lymphocytes # (Auto) 2.5 K/mm3 (1.2-5.4); Lymphocytes % (Auto) 32.9 % (13.4-35.0); Mean Corpuscular HGB Conc 32 % (30-34); Mean Corpuscular Volume 86 fl (79-97); Monocytes # (Auto) 0.6 K/mm3 (0.0-0.8); Monocytes % (Auto) 8.3 % (0.0-7.3); Platelet Count 323 K/mm3 (140-440); Red Blood Count 4.61 M/mm3 (3.65-5.03); Red Cell Distribution Width 15.5 % (13.2-15.2)
[2019-10-09 17:58] LABS: BUN/Creatinine Ratio 10; Blood Urea Nitrogen 11 mg/dL (7-17); Calcium 9.4 mg/dL (8.4-10.2); Hemolysis Index 14
== END 2019-10-09 20:00 | disposition left against medical advice (07) ==
LOC: ED 16:28
DX: R07.89 Other chest pain (principal); Z53.21 Procedure and treatment not carried out due to patient leaving prior to being seen by health care provider
CPT/HCPCS: 36415; 71046; 80048; 85025

== ENCOUNTER 2019-10-10 11:01 | Inpatient (IN) | payer MEDICAID ==
[2019-10-10] MEDS ORDERED: IPRATROPIUM 0.02% NEBU 2.5 ML IH STA (12:13)
[2019-10-10] MEDS ORDERED: ALBUTEROL 2.5 MG/3 ML NEBU IH STA (12:13)
[2019-10-10] MEDS ORDERED: predniSONE 50 MG TAB PO STA (12:13)
[2019-10-10 12:38] LABS: Hematocrit 40.2 % (30.3-42.9); Mean Corpuscular HGB Conc 32 % (30-34); Mean Corpuscular Volume 86 fl (79-97); Platelet Count 326 K/mm3 (140-440); Red Blood Count 4.71 M/mm3 (3.65-5.03); Red Cell Distribution Width 15.3 % (13.2-15.2)
[2019-10-10 12:44] LABS: BUN/Creatinine Ratio 13; Blood Urea Nitrogen 10 mg/dL (7-17); Calcium 9.5 mg/dL (8.4-10.2); Hemolysis Index 12
--- NOTE | 2019-10-10 12:57 | Emergency Department Report ---
ED Shortness of Breath HPI - General Chief Complaint: Dyspnea/Respdistress Stated Complaint: FERNANDO Time Seen by Provider: 10/10/19 11:55 Source: patient Mode of arrival: Ambulatory Limitations: No Limitations - History of Present Illness Initial Comments: 58-year-old obese oxygen dependent -Green[place]ic female smoker with a past medical history of hypertension and COPD presents much department complaining of a few day history of progressively worsening dyspnea. She reports having some issues of cough congestion with scant mucus production and chest pain That worsens with excitement and exertion. Severity: mild Consistency: constant Improves With: oxygen, rest Worsens With: movement Associated Symptoms: denies other symptoms Treatments Prior to Arrival: none - Related Data Home Medications Medication Instructions Recorded Confirmed Last Taken Budesonide/Formoterol Fumarate 2 puff IH DAILY 11/18/17 11/18/17 Unknown [Symbicort 160-4.5 Mcg Inhaler] Previous Rx's Medication Instructions Recorded Last Taken Type Azithromycin [Zithromax] 250 mg PO DAILY 5 Days tablet 11/19/17 Unknown Rx Benzonatate [Tessalon Perles] 100 mg PO Q8HR PRN #20 capsule 11/19/17 Unknown Rx HYDROcodone/APAP 5-325 [[place] 1 each PO Q6H PRN #10 tablet 11/19/17 Unknown Rx 5-325 mg TAB] tiZANidine [Zanaflex 4mg TAB] 4 mg PO Q8H PRN #15 tablet 07/12/19 Unknown Rx traMADol [Ultram] 50 mg PO Q6HR PRN #15 tablet 07/12/19 Unknown Rx Albuterol Sulfate [Proventil Hfa] 2 puff IH Q4-6H PRN #1 hfa.aer.ad 07/26/19 Unknown Rx Ipratropium/Albuterol Sulfate 1 ampul IH Q6HRT 30 Days ampul.neb 07/26/19 Unknown Rx [DUONEB *Not for PRN Use*] predniSONE [Deltasone] 60 mg PO QDAY #20 tab 07/26/19 Unknown Rx Allergies Allergy/AdvReac Type Severity Reaction Status Date / Time No Known Allergies Allergy Verified 05/16/16 09:50 ED Review of Systems ROS: Stated complaint: FERNANDO Other details as noted in HPI Comment: All other systems reviewed and negative ED Past Medical Hx - Past Medical History Hx Hypertension: Yes Hx Heart Attack/AMI: No Hx Congestive Heart Failure: No Hx Diabetes: No Hx Deep Vein Thrombosis: No Hx Pulmonary Embolism: No Hx GERD: No Hx Liver Disease: No Hx Renal Disease: No Hx Sickle Cell Disease: No Hx Arthritis: No Hx Headaches / Migraines: No Hx Seizures: No Hx Kidney Stones: No Hx Psychiatric Treatment: No Hx Asthma: Yes Hx COPD: Yes (2L [place] home 02) Hx Tuberculosis: No Hx Dementia: No Hx HIV: No - Surgical History Hx Coronary Stent: No Hx Open Heart Surgery: No Hx Pacemaker: No Hx Internal Defibrillator: No Hx Cholecystectomy: No Hx Appendectomy: No Hx Breast Surgery: No - Social History Smoking Status: Current Every Day Smoker Substance Use Type: None - Medications Home Medications: Home Medications Medication Instructions Recorded Confirmed Last Taken Type Budesonide/Formoterol Fumarate 2 puff IH DAILY 11/18/17 11/18/17 Unknown History [Symbicort 160-4.5 Mcg Inhaler] Azithromycin [Zithromax] 250 mg PO DAILY 5 Days tablet 11/19/17 Unknown Rx Benzonatate [Tessalon Perles] 100 mg PO Q8HR PRN #20 capsule 11/19/17 Unknown Rx HYDROcodone/APAP 5-325 [[place] 1 each PO Q6H PRN #10 tablet 11/19/17 Unknown Rx 5-325 mg TAB] tiZANidine [Zanaflex 4mg TAB] 4 mg PO Q8H PRN #15 tablet 07/12/19 Unknown Rx traMADol [Ultram] 50 mg PO Q6HR PRN #15 tablet 07/12/19 Unknown Rx Albuterol Sulfate [Proventil Hfa] 2 puff IH Q4-6H PRN #1 hfa.aer.ad 07/26/19 Unknown Rx Ipratropium/Albuterol Sulfate 1 ampul IH Q6HRT 30 Days ampul.neb 07/26/19 Unknown Rx [DUONEB *Not for PRN Use*] predniSONE [Deltasone] 60 mg PO QDAY #20 tab 07/26/19 Unknown Rx ED Physical Exam - General Limitations: No Limitations General appearance: alert, in distress (respiratory distressldmi) - Head Head exam: Present: atraumatic, normocephalic - Eye Eye exam: Present: normal appearance, PERRL, EOMI Pupils: Present: normal accommodation - ENT ENT exam: Present: normal exam, normal orophraynx, mucous membranes moist, TM's normal bilaterally - Neck Neck exam: Present: normal inspection, full ROM - Respiratory Respiratory exam: Present: normal lung sounds bilaterally, wheezes, decreased breath sounds. Absent: respiratory distress, rales, rhonchi - Cardiovascular Cardiovascular Exam: Present: regular rate, normal rhythm. Absent: systolic murmur, diastolic murmur, rubs, gallop - GI/Abdominal GI/Abdominal exam: Present: soft, normal bowel sounds. Absent: distended, guarding, hyperactive bowel sounds, hypoactive bowel sounds, organomegaly - Extremities Exam Extremities exam: Present: normal inspection, full ROM, normal capillary refill - Back Exam Back exam: Present: normal inspection, full ROM. Absent: CVA tenderness (R), CVA tenderness (L) - Neurological Exam Neurological exam: Present: alert, oriented X3, CN II-XII intact - Psychiatric Psychiatric exam: Present: normal affect, normal mood. Absent: anxious, flat affect - Skin Skin exam: Present: warm, dry, intact, normal color. Absent: rash ED Course Vital Signs 10/10/19 10/10/19 11:22 12:15 Temperature 98.5 F Pulse Rate 92 H 86 Respiratory 20 22 Rate Blood Pressure 107/68 Blood Pressure 154/84 [Left] O2 Sat by Pulse 94 99 Oximetry - Reevaluation(s) Reevaluation #1: 10/10/19 14:45 Patient was ambulated around the emergency department was only able to make a 20 feet before it having extreme dyspnea and reemergence of chest pain. Her saturation at the start of ambulation was 98% on oxygen and decreased to 93% ED Medical Decision Making - Lab Data Result diagrams: 10/10/19 11:27 10/10/19 11:27 - EKG Data EKG shows normal: sinus rhythm Rate: normal - EKG Data When compared to previous EKG there are: no significant change - Medical Decision Making 71-year-old [place] female with smoker with COPD history presents with worsening chest pain and shortness of breath over the past couple days. Her x- rays were normal as well as her laboratory findings with troponins were negative as well. She reports a significant improvement after the steroids and the however upon ambulation she was extremely dyspneic with chest pain Critical care attestation.: If time is entered above; I have spent that time in minutes in the direct care of this critically ill patient, excluding procedure time. ED Disposition Clinical Impression: Dyspnea, Chest pain Disposition: [id number] OP ADMIT IP TO THIS HOSP Is pt being admited?: Yes Does the pt Need Aspirin: No Condition: Fair Instructions: Chest Pain (ED)
--- NOTE | 2019-10-10 15:27 | History and Physical Report ---
History of Present Illness Chief complaint: im short of breath History of present illness: 58 YO Female with Obesity, HTN, COPD,Nicotine Dependence, Chronic Respiratory Failure on Home Oxygen 2L via [place] presents to ED for evaluation. Pt states that she has experienced shortness of breath, productive cough with clear mucus, as well as nasal congestion. Pt transported to [facility] via private vehicle. Pt seen and evaluated in ED and found to have Acute on Chronic Respiratory Failure secondary to COPD exacerbation. Pt treated with supportive care, nebulizer therapy without improvement in symptoms. Pt subsequently placed on NIPPV. Pt admitted to medical floor. No further history obtainable. Pt unable to provide further history due to shortness of breath. Pt leaning forward, unable to speak in full sentences. Prior admission on 11/16/17 reviewed. All listed medication reconciled at time of exam. CTA chest pending at time of admission. Past History Past Medical History: other (see HPI) Past Surgical History: No surgical history, Other (reviewed) Social history: single. denies: smoking, alcohol abuse, prescription drug abuse Family history: no significant family history (reviewed) Medications and Allergies Allergies Allergy/AdvReac Type Severity Reaction Status Date / Time No Known Allergies Allergy Verified 05/16/16 09:50 Home Medications Medication Instructions Recorded Confirmed Last Taken Type Budesonide/Formoterol Fumarate 2 puff IH DAILY 11/18/17 10/10/19 10/09/19 History [Symbicort 160-4.5 Mcg Inhaler] 2 Azithromycin [Zithromax] 250 mg PO DAILY 5 Days tablet 11/19/17 10/10/19 Unknown Rx Benzonatate [Tessalon Perles] 100 mg PO Q8HR PRN #20 capsule 11/19/17 10/10/19 Unknown Rx HYDROcodone/APAP 5-325 [[place] 1 each PO Q6H PRN #10 tablet 11/19/17 10/10/19 Unknown Rx 5-325 mg TAB] tiZANidine [Zanaflex 4mg TAB] 4 mg PO Q8H PRN #15 tablet 07/12/19 10/10/19 Unknown Rx traMADol [Ultram] 50 mg PO Q6HR PRN #15 tablet 07/12/19 10/10/19 Unknown Rx Albuterol Sulfate [Proventil Hfa] 2 puff IH Q4-6H PRN #1 hfa.aer.ad 07/26/19 10/10/19 10/09/19 Rx 2 Ipratropium/Albuterol Sulfate 1 ampul IH Q6HRT 30 Days ampul.neb 07/26/19 10/10/19 10/09/19 Rx [DUONEB *Not for PRN Use*] 1 predniSONE [Deltasone] 60 mg PO QDAY #20 tab 07/26/19 10/10/19 Unknown Rx Review of Systems Constitutional: no weight loss, no weight gain, no fever Ears, nose, mouth and throat: no ear pain, no decreased hearing, no nose pain, no nasal congestion, no nasal discharge Breasts: no change in shape Cardiovascular: no chest pain, no orthopnea, no palpitations, no rapid/irregular heart beat Respiratory: cough, cough with sputum, shortness of breath Gastrointestinal: no abdominal pain, no nausea, no vomiting, no diarrhea, no constipation Genitourinary Female: no pelvic pain, no menorrhagia, no urinary frequency, no stress incontinence, no incomplete emptying, no urge incontinence Rectal: no pain, no incontinence, no bleeding Musculoskeletal: no neck stiffness, no neck pain, no arm numbness/tingling, no low back pain, no shooting leg pain Integumentary: no rash, no pruritis, no sores, no wounds, no blisters Neurological: no transient paralysis, no paralysis, no weakness, no numbness, no tingling, no seizures, no syncope, no tremors Psychiatric: no anxiety, no change in sleep habits, no insomnia, no hypersomnia, no change in appetite, no hallucinations Endocrine: no cold intolerance, no polyphagia, no excessive thirst, no excessive sweating, no weight change Hematologic/Lymphatic: no easy bleeding Allergic/Immunologic: no urticaria, no allergic rhinitis, no wheezing Exam - Constitutional Vitals: Temp Pulse Resp BP Pulse Ox 98.5 F 86 22 154/84 99 10/10/19 11:22 10/10/19 12:15 10/10/19 12:15 10/10/19 12:15 10/10/19 12:15 General appearance: Present: mild distress, obese - EENT Eyes: Present: PERRL ENT: hearing intact, clear oral mucosa - Neck Neck: Present: supple, normal ROM - Respiratory Respiratory effort: labored, accessory muscle use Respiratory: bilateral: diminished, rhonchi - Cardiovascular Heart Sounds: Present: S1 & S2. Absent: rub, click - Extremities Extremities: pulses symmetrical, No edema Peripheral Pulses: within normal limits - Abdominal General gastrointestinal: Present: soft, non-tender, non-distended, normal bowel sounds Female genitourinary: Present: normal - Integumentary Integumentary: Present: clear, warm, dry - Musculoskeletal Musculoskeletal: gait normal, strength equal bilaterally - Psychiatric Psychiatric: appropriate mood/affect, intact judgment & insight - Neurologic Neurologic: CNII-XII intact, moves all extremities Results - Labs CBC & Chem 7: 10/10/19 11:27 10/10/19 11:27 Labs: Abnormal lab results 10/10/19 10/10/19 Range/Units 11: 11:27 RDW 15.3 H (13.2-15.2) % Glucose 120 H (65-100) mg/dL Assessment and Plan - Patient Problems (1) Acute and chronic respiratory failure Current Visit: No Status: Acute Qualifiers: Respiratory failure complication: hypoxia Qualified Code(s): J96.21 - Acute and chronic respiratory failure with hypoxia Plan to address problem: Supplemental oxygen, nebulizer therapy, d dimer, CT chest, pulse oximetry, chest x ray, ABG, NIPPV as clinically indicated (2) Obesity hypoventilation syndrome Current Visit: Yes Status: Acute Plan to address problem: Balanced diet, increased physical activity at discharge (3) COPD exacerbation Current Visit: No Status: Acute Plan to address problem: supplemental oxygen, nebulizer therapy, IV steroid therapy, Iv antibiotic therapy, pulse oximetry (4) HTN (hypertension) Current Visit: Yes Status: Acute Qualifiers: Hypertension type: essential hypertension Qualified Code(s): I10 - Essential (primary) hypertension Plan to address problem: monitor bp q shift, continue medical management (5) Nicotine dependence Current Visit: Yes Status: Acute Qualifiers: Nicotine product type: cigarettes Plan to address problem: smoking cessation counseling, supportive care (6) DVT prophylaxis Current Visit: Yes Status: Acute Plan to address problem: SCD to BLE while in bed, prophylactic heparin
[2019-10-10] MEDS ORDERED: oxyCODONE /ACETAMINOPHEN 5-325MG TAB PO PRN (15:35)
[2019-10-10] MEDS ORDERED: ONDANSETRON 4 MG/2 ML INJ IV PRN (15:35)
[2019-10-10] MEDS ORDERED: ACETAMINOPHEN 325 MG TAB PO PRN (15:35)
[2019-10-10] MEDS ORDERED: tiZANidine TAB 4 MG TAB PO PRN (16:24)
[2019-10-10] MEDS ORDERED: traMADol 50 MG TAB PO PRN (16:24)
[2019-10-10] MEDS ORDERED: LORazepam 2 MG/ML VIAL IV ONE (16:48)
[2019-10-10] MEDS ORDERED: LORazepam 2 MG/ML VIAL ONE (16:53)
[2019-10-10] MEDS ORDERED: oxyCODONE /ACETAMINOPHEN 5-325MG TAB ONE (17:10)
[2019-10-10] MEDS: HYDROcodone/ACETAMINOPHEN 5-325 MG TAB PO PRN (17:13)
[2019-10-10] MEDS ORDERED: HYDROcodone/ACETAMINOPHEN 5-325 MG TAB ONE (17:15)
--- NOTE | 2019-10-10 17:33 | Cat Scan Report ---
CTA CHEST WITH IV CONTRAST INDICATION: Acute onset chest pain with dyspnea. TECHNIQUE: Axial CT images were obtained through the chest after injection of 100 mL IV contrast. 3 plane MIP re constructions were produced. All CT scans at this location are performed using CT dose reduction for ALARA by means of automated exposure control. COMPARISON: None available. FINDINGS: PULMONARY ARTERIES: No pulmonary emboli. Some motion artifact limits finding. Respiratory motion russ fact. AORTA AND ARTERIES: No acute abnormality. MEDIASTINUM: No mass, lymphadenopathy or other significant abnormality. The heart is normal in size w ithout a pericardial effusion. The trachea and main bronchi are patent and normal in caliber. LUNGS: Emphysema. No suspicious consolidation, nodule or mass. No pneumothorax or pleural effusion. ADDITIONAL FINDINGS: None. UPPER ABDOMEN: No acute findings. BONES: No significant osseous abnormality. IMPRESSION: 1. No definite CT evidence for pulmonary embolism. 2. No acute findings. Signer Name: Alberto Copeland MD Signed: 10/10/2019 5:28 PM Workstation Name: [id number]
[2019-10-10] MEDS: BUDESONIDE 0.5 MG/2 ML NEBU IH SCH ×2 (18:09→19:25)
[2019-10-10] MEDS: ARFORMOTEROL 15 MCG/2 ML NEBU IH SCH ×2 (18:10→19:26)
[2019-10-10] MEDS: IPRATROPIUM/ALBUTEROL SULFATE 3 ML AMPUL.NEB IH SCH (19:25)
[2019-10-10] MEDS: methylPREDNISolone Sod Succinate 40 MG/1 ML INJ IV SCH (23:39)
[2019-10-10] MEDS: HEPARIN 5,000 UNIT/1 ML VIAL SUB-Q SCH (23:39)
[2019-10-10] MEDS: FAMOTIDINE 20 MG TAB PO SCH (23:39)
[2019-10-11] MEDS: BENZONATATE 100 MG CAP PO PRN (02:32)
[2019-10-11 03:40] LABS: Amphetamine Screen,Urine PRESUMPTIVE NEGATIVE; Benzodiazepines Screen,Urine PRESUMPTIVE NEGATIVE; Cannabinoid Screen,Urine PRESUMPTIVE NEGATIVE; Methadone Screen,Urine PRESUMPTIVE NEGATIVE; Opiate Screen,Urine PRESUMPTIVE NEGATIVE
[2019-10-11] MEDS ORDERED: hydrALAZINE 20 MG/1 ML INJ IV PRN (03:44)
[2019-10-11] MEDS: IPRATROPIUM/ALBUTEROL SULFATE 3 ML AMPUL.NEB IH SCH ×4 (03:52→19:17)
[2019-10-11] MEDS: BUDESONIDE 0.5 MG/2 ML NEBU IH SCH ×3 (03:52→19:17)
[2019-10-11 03:54] LABS: Cocaine Screen,Urine PRESUMPTIVE POSITIVE
[2019-10-11 07:47] LABS: Basophils # (Auto) 0.1 K/mm3 (0.0-0.1); Basophils % (Auto) 0.7 % (0.0-1.8); Hematocrit 40.2 % (30.3-42.9); Hemoglobin 12.8 gm/dl (10.1-14.3); Lymphocytes # (Auto) 0.7 K/mm3 (1.2-5.4); Mean Corpuscular HGB Conc 32 % (30-34); Mean Corpuscular Volume 87 fl (79-97); Monocytes # (Auto) 0.1 K/mm3 (0.0-0.8); Monocytes % (Auto) 1.8 % (0.0-7.3); Platelet Count 321 K/mm3 (140-440); Red Blood Count 4.65 M/mm3 (3.65-5.03); Red Cell Distribution Width 15.6 % (13.2-15.2)
[2019-10-11] MEDS: ARFORMOTEROL 15 MCG/2 ML NEBU IH SCH ×2 (09:25→19:18)
[2019-10-11] MEDS ORDERED: NON-FORMULARY EACH (Budesonide/Formoterol Fumarate [Symbicort 160-4.5 Mcg Inhaler] 2 PUFF) IH SCH (10:00)
[2019-10-11] MEDS ORDERED: predniSONE 20 MG TAB PO SCH (10:00)
[2019-10-11] MEDS: AZITHROMYCIN 500 MG in SODIUM CHLORIDE 0.9% 250ML 250 ML IV SCH (10:06)
[2019-10-11] MEDS: FAMOTIDINE 20 MG TAB PO SCH ×2 (10:06→22:18)
[2019-10-11] MEDS: HEPARIN 5,000 UNIT/1 ML VIAL SUB-Q SCH ×2 (10:07→22:18)
[2019-10-11] MEDS: methylPREDNISolone Sod Succinate 40 MG/1 ML INJ IV SCH ×2 (10:07→22:18)
[2019-10-11] MEDS: amLODIPine 10 MG TAB PO SCH (12:39)
[2019-10-11] MEDS ORDERED: MAGNESIUM HYDROXIDE (MOM) ORAL LIQD UDC PO ONE (12:45)
[2019-10-11] MEDS ORDERED: amLODIPine 10 MG TAB PO SCH (15:00)
[2019-10-11] MEDS: HYDROcodone/ACETAMINOPHEN 5-325 MG TAB PO PRN (16:45)
--- NOTE | 2019-10-11 19:00 | Progress Note ---
Assessment and Plan (1) Acute and chronic respiratory failure Current Visit: No Status: Acute Qualifiers: Respiratory failure complication: hypoxia Qualified Code(s): J96.21 - Acute and chronic respiratory failure with hypoxia Plan to address problem: Supplemental oxygen, nebulizer therapy, IV Solu-Medrol, IV antibiotics, CT chest showed no PE, pulse oximetry, chest x ray remarkable for neck events, (2) Obesity hypoventilation syndrome Current Visit: Yes Status: Acute Plan to address problem: Balanced diet, increased physical activity advised (3) COPD exacerbation Current Visit: No Status: Acute Plan to address problem: supplemental oxygen, nebulizer therapy, IV steroid therapy, Iv antibiotic therapy, pulse oximetry (4) HTN (hypertension) Current Visit: Yes Status: Acute Qualifiers: Hypertension type: essential hypertension Qualified Code(s): I10 - Essential (primary) hypertension Plan to address problem: monitor bp q shift, continue medical management (5) Nicotine dependence Current Visit: Yes Status: Acute Qualifiers: Nicotine product type: cigarettes Plan to address problem: smoking cessation counseling, supportive care (6) DVT prophylaxis Current Visit: Yes Status: Acute Plan to address problem: SCD to BLE while in bed, prophylactic heparin Subjective Date of service: 10/11/19 Principal diagnosis: extent respiratory failure, COPD exacerbation, HTN, OHS. Interval history: Patient states breath, on high flow oxygen at 30%. Denies any fever. Current smoker. Objective - Exam Narrative Exam: Constitutional: Well-nourished well-developed. On high flow oxygen via nasal cannula. Head: Normocephalic atraumatic Eyes: Pupils are equal round and reactive to light Nose: No enlarged turbinates, no septal deviation. Mouth: Moist mucous membranes. Neck: Supple no thyromegaly. No bruit. No JVD Heart: Regular rate and rhythm, S1-S2 normal. No rubs murmurs or gallop Lungs: Decreased breath sounds bilaterally. no rales or rhonchi Abdomen: Soft, nontender. Bowel sound are present. Extremities: No edema, no cyanosis, no clubbing. Neuro: Alert oriented Oriented x3. No focal sensory or motor deficit. Skin: No rashes or hyperpigmented spots Musculoskeletal system: No joint pain or swelling Hematological: No petechia or subcutanous hemorrhages. Immunological: No multiple septic spots on the skin Lymphatic: No generalized lymphadenopathy Psychiatry: Euthymic. Calm. - Constitutional Vitals: Vital Signs - 12hr 10/11/19 10/11/19 10/11/19 07:30 10:00 10:04 Temperature Pulse Rate Pulse Rate [ 90 Anterior Bilateral Throughout] Respiratory Rate Respiratory 18 Rate [Anterior Bilateral Throughout] Blood Pressure 152/98 O2 Sat by Pulse 93 Oximetry 10/11/19 10/11/19 10/11/19 11:39 12:39 13:41 Temperature 99.0 F Pulse Rate 88 Pulse Rate [ 89 Anterior Bilateral Throughout] Respiratory 20 Rate Respiratory 20 Rate [Anterior Bilateral Throughout] Blood Pressure 137/78 158/98 O2 Sat by Pulse 90 Oximetry 10/11/19 10/11/19 16:46 17:11 Temperature 99.6 F Pulse Rate 95 H Pulse Rate [ Anterior Bilateral Throughout] Respiratory 22 Rate Respiratory Rate [Anterior Bilateral Throughout] Blood Pressure 143/85 134/74 O2 Sat by Pulse 95 Oximetry - Labs CBC & Chem 7: 10/11/19 07:09 10/10/19 11:27 Labs: Abnormal lab results 10/10/19 10/11/19 10/11/19 Range/Units 23:43 07:09 07:09 RDW 15.6 H (13.2-15.2) % Lymph % (Auto) 9.0 L (13.4-35.0) % Lymph # 0.7 L (1.2-5.4) K/mm3 Seg Neutrophils % 88.5 H (40.0-70.0) % POC ABG pH 7.497 H (7.35-7.45) POC ABG pCO2 47.3 H 33.9 L (35-45) POC ABG pO2 122 H (80-105)
[2019-10-11] MEDS: ZOLPIDEM 5 MG TAB PO SCH (22:18)
[2019-10-12] MEDS: IPRATROPIUM/ALBUTEROL SULFATE 3 ML AMPUL.NEB IH SCH ×4 (01:53→19:37)
[2019-10-12] MEDS: ARFORMOTEROL 15 MCG/2 ML NEBU IH SCH ×2 (07:33→19:36)
[2019-10-12] MEDS: BUDESONIDE 0.5 MG/2 ML NEBU IH SCH ×2 (07:33→19:37)
[2019-10-12] MEDS: HYDROcodone/ACETAMINOPHEN 5-325 MG TAB PO PRN ×2 (08:34→15:54)
[2019-10-12] MEDS: amLODIPine 10 MG TAB PO SCH (10:31)
[2019-10-12] MEDS: methylPREDNISolone Sod Succinate 40 MG/1 ML INJ IV SCH ×2 (10:31→21:13)
[2019-10-12] MEDS: FAMOTIDINE 20 MG TAB PO SCH ×2 (10:31→21:13)
[2019-10-12] MEDS: HEPARIN 5,000 UNIT/1 ML VIAL SUB-Q SCH ×2 (10:32→21:15)
[2019-10-12] MEDS ORDERED: PNEUMOCOCCAL 23 Valent 0.5 ML VIAL IM ONE (12:00)
[2019-10-12] MEDS ORDERED: FLU VACC QUAD 2019-20 (3 YR UP)/PF 60 MCG/0.5 ML SYRINGE IM ONE (12:00)
[2019-10-12] MEDS: AZITHROMYCIN 500 MG in SODIUM CHLORIDE 0.9% 250ML 250 ML IV SCH (12:03)
--- NOTE | 2019-10-12 12:56 | Progress Note ---
Assessment and Plan (1) Acute and chronic respiratory failure Current Visit: No Status: Acute Qualifiers: Respiratory failure complication: hypoxia Qualified Code(s): J96.21 - Acute and chronic respiratory failure with hypoxia Plan to address problem: Supplemental oxygen, nebulizer therapy, IV Solu-Medrol, IV antibiotics, CT chest showed no PE, chest x ray remarkable for neck events, wean off high flow oxygen as tolerated (2) Obesity hypoventilation syndrome Current Visit: Yes Status: Acute Plan to address problem: Balanced diet, increased physical activity advised (3) COPD exacerbation Current Visit: No Status: Acute Plan to address problem: supplemental oxygen, nebulizer therapy, IV steroid therapy, Iv antibiotic therapy, pulse oximetry (4) HTN (hypertension) Current Visit: Yes Status: Acute Qualifiers: Hypertension type: essential hypertension Qualified Code(s): I10 - Essential (primary) hypertension Plan to address problem: monitor bp q shift, continue medical management (5) Nicotine dependence Current Visit: Yes Status: Acute Qualifiers: Nicotine product type: cigarettes Plan to address problem: smoking cessation counseling, supportive care (6) DVT prophylaxis Current Visit: Yes Status: Acute Plan to address problem: SCD to BLE while in bed, prophylactic heparin Subjective Date of service: 10/12/19 Principal diagnosis: extent respiratory failure, COPD exacerbation, HTN, OHS. Interval history: Patient states breath, on high flow oxygen at 30%. Denies any fever. Current smoker. Objective - Exam Narrative Exam: Constitutional: Well-nourished well-developed. On high flow oxygen via nasal cannula. Head: Normocephalic atraumatic Eyes: Pupils are equal round and reactive to light Nose: No enlarged turbinates, no septal deviation. Mouth: Moist mucous membranes. Neck: Supple no thyromegaly. No bruit. No JVD Heart: Regular rate and rhythm, S1-S2 normal. No rubs murmurs or gallop Lungs: Decreased breath sounds bilaterally. no rales or rhonchi Abdomen: Soft, nontender. Bowel sound are present. Extremities: No edema, no cyanosis, no clubbing. Neuro: Alert oriented Oriented x3. No focal sensory or motor deficit. Skin: No rashes or hyperpigmented spots Musculoskeletal system: No joint pain or swelling Hematological: No petechia or subcutanous hemorrhages. Immunological: No multiple septic spots on the skin Lymphatic: No generalized lymphadenopathy Psychiatry: Euthymic. Calm. - Constitutional Vitals: Vital Signs - 12hr 10/12/19 10/12/19 10/12/19 01:46 01:57 04:48 Temperature 98.7 F Pulse Rate 76 Pulse Rate [ 108 H Anterior Bilateral Throughout] Respiratory 23 24 Rate Respiratory 18 Rate [Anterior Bilateral Throughout] Blood Pressure 139/82 O2 Sat by Pulse 99 96 Oximetry 10/12/19 10/12/19 10/12/19 08:05 08:11 08:56 Temperature Pulse Rate Pulse Rate [ 87 Anterior Bilateral Throughout] Respiratory Rate Respiratory 20 Rate [Anterior Bilateral Throughout] Blood Pressure O2 Sat by Pulse 100 98 Oximetry 10/12/19 10/12/19 10:26 10:31 Temperature 99.2 F Pulse Rate 81 81 Pulse Rate [ Anterior Bilateral Throughout] Respiratory 18 Rate Respiratory Rate [Anterior Bilateral Throughout] Blood Pressure 125/70 125/70 O2 Sat by Pulse 98 Oximetry - Labs CBC & Chem 7: 10/11/19 07:09 10/10/19 11:27
[2019-10-12] MEDS: ALBUTEROL 2.5 MG/3 ML NEBU IH PRN (17:53)
[2019-10-12] MEDS: ZOLPIDEM 5 MG TAB PO SCH (21:22)
[2019-10-13] MEDS: IPRATROPIUM/ALBUTEROL SULFATE 3 ML AMPUL.NEB IH SCH ×4 (01:41→19:39)
[2019-10-13 07:30] LABS: Hematocrit 37.5 % (30.3-42.9); Hemoglobin 11.9 gm/dl (10.1-14.3); Mean Corpuscular HGB Conc 32 % (30-34); Mean Corpuscular Volume 86 fl (79-97); Platelet Count 296 K/mm3 (140-440); Red Blood Count 4.34 M/mm3 (3.65-5.03); Red Cell Distribution Width 15.7 % (13.2-15.2)
[2019-10-13] MEDS: BENZONATATE 100 MG CAP PO PRN ×2 (07:48→18:09)
[2019-10-13 08:02] LABS: Alanine Aminotransferase 15 units/L (7-56); Albumin 4.1 g/dL (3.9-5); BUN/Creatinine Ratio 33; Blood Urea Nitrogen 26 mg/dL (7-17); Calcium 9.1 mg/dL (8.4-10.2); Hemolysis Index 0
[2019-10-13] MEDS: BUDESONIDE 0.5 MG/2 ML NEBU IH SCH ×2 (08:49→19:39)
[2019-10-13] MEDS: ARFORMOTEROL 15 MCG/2 ML NEBU IH SCH ×2 (08:57→19:39)
[2019-10-13] MEDS: AZITHROMYCIN 500 MG in SODIUM CHLORIDE 0.9% 250ML 250 ML IV SCH (10:04)
[2019-10-13] MEDS: amLODIPine 10 MG TAB PO SCH (10:05)
[2019-10-13] MEDS: FAMOTIDINE 20 MG TAB PO SCH ×2 (10:06→21:51)
[2019-10-13] MEDS: methylPREDNISolone Sod Succinate 40 MG/1 ML INJ IV SCH (10:06)
[2019-10-13] MEDS: HEPARIN 5,000 UNIT/1 ML VIAL SUB-Q SCH ×2 (10:06→21:57)
[2019-10-13 10:09] LABS: Basophils % (Manual) 0 % (0.0-1.8); Eosinophils % (Manual) 0 % (0.0-4.3); Large Platelets Few; Myelocytes # (Manual) 0.1 K/mm3; Platelet Estimate Consistent w Auto; RBC Morphology Normal; Total Cells Counted 100
[2019-10-13] MEDS: HYDROcodone/ACETAMINOPHEN 5-325 MG TAB PO PRN ×2 (10:56→18:09)
--- NOTE | 2019-10-13 12:23 | Progress Note ---
Assessment and Plan Assessment and plan: Acute and chronic respiratory failure Supplemental oxygen, nebulizer therapy, IV Solu-Medrol, IV antibiotics, CT chest showed no PE, wean off high flow oxygen as tolerated Obesity hypoventilation syndrome Balanced diet, increased physical activity advised COPD exacerbation supplemental oxygen, nebulizer therapy, IV steroid therapy, Iv antibiotic therapy, pulse oximetry HTN (hypertension) monitor bp q shift, continue medical management Nicotine dependence smoking cessation counseling, supportive care DVT prophylaxis SCD to BLE while in bed, prophylactic heparin History Interval history: No new issues overnight Hospitalist Physical - Constitutional Vitals: Temp Pulse Resp BP Pulse Ox 98.8 F 79 12 130/80 100 10/13/19 05:17 10/13/19 10:05 10/13/19 09:00 10/13/19 10:05 10/13/19 09:33 General appearance: Present: no acute distress, obese - EENT Eyes: Present: PERRL, EOM intact ENT: hearing intact, clear oral mucosa, dentition normal - Neck Neck: Present: supple, normal ROM - Respiratory Respiratory effort: normal Respiratory: bilateral: CTA - Cardiovascular Rhythm: regular Heart Sounds: Present: S1 & S2. Absent: gallop, rub - Extremities Extremities: no ischemia, No edema, Full ROM - Abdominal General gastrointestinal: soft, non-tender, non-distended, normal bowel sounds - Integumentary Integumentary: Present: clear, warm, dry - Neurologic Neurologic: CNII-XII intact, moves all extremities Results - Labs CBC & Chem 7: 10/13/19 07:12 10/13/19 07:12 Labs: Laboratory Last Values WBC 12.3 K/mm3 (4.5-11.0) H 10/13/19 07:12 RBC 4.34 M/mm3 (3.65-5.03) 10/13/19 07:12 Hgb 11.9 gm/dl (10.1-14.3) 10/13/19 07:12 Hct 37.5 % (30.3-42.9) 10/13/19 07:12 MCV 86 fl (79-97) 10/13/19 07:12 MCH 27 pg (28-32) L 10/13/19 07:12 MCHC 32 % (30-34) 10/13/19 07:12 RDW 15.7 % (13.2-15.2) H 10/13/19 07:12 Plt Count 296 K/mm3 (140-440) 10/13/19 07:12 Lymph % (Auto) 9.0 % (13.4-35.0) L 10/11/19 07:09 [place] % (Auto) 1.8 % (0.0-7.3) 10/11/19 07:09 Eos % (Auto) 0.0 % (0.0-4.3) 10/11/19 07:09 Baso % (Auto) 0.7 % (0.0-1.8) 10/11/19 07:09 Lymph # 0.7 K/mm3 (1.2-5.4) L 10/11/19 07:09 [place] # 0.1 K/mm3 (0.0-0.8) 10/11/19 07:09 Eos # 0.0 K/mm3 (0.0-0.4) 10/11/19 07:09 Baso # 0.1 K/mm3 (0.0-0.1) 10/11/19 07:09 Add Manual Diff Complete 10/13/19 07:12 Total Counted 100 10/13/19 07:12 Seg Neutrophils % 88.5 % (40.0-70.0) H 10/11/19 07:09 Seg Neuts % (Manual) 87.0 % (40.0-70.0) H 10/13/19 07:12 Band Neutrophils % 0 % 10/13/19 07:12 Lymphocytes % (Manual) 8.0 % (13.4-35.0) L 10/13/19 07:12 Reactive Lymphs % (Man) 0 % 10/13/19 07:12 Monocytes % (Manual) 4.0 % (0.0-7.3) 10/13/19 07:12 Eosinophils % (Manual) 0 % (0.0-4.3) 10/13/19 07:12 Basophils % (Manual) 0 % (0.0-1.8) 10/13/19 07:12 Metamyelocytes % 0 % 10/13/19 07:12 Myelocytes % 1.0 % 10/13/19 07:12 Promyelocytes % 0 % 10/13/19 07:12 Blast Cells % 0 % 10/13/19 07:12 Nucleated RBC % Not Reportable 10/13/19 07:12 Seg Neutrophils # 7.3 K/mm3 (1.8-7.7) 10/11/19 07:09 Seg Neutrophils # Man 10.7 K/mm3 (1.8-7.7) H 10/13/19 07:12 Band Neutrophils # 0.0 K/mm3 10/13/19 07:12 Lymphocytes # (Manual) 1.0 K/mm3 (1.2-5.4) L 10/13/19 07:12 Abs React Lymphs (Man) 0.0 K/mm3 10/13/19 07:12 Monocytes # (Manual) 0.5 K/mm3 (0.0-0.8) 10/13/19 07:12 Eosinophils # (Manual) 0.0 K/mm3 (0.0-0.4) 10/13/19 07:12 Basophils # (Manual) 0.0 K/mm3 (0.0-0.1) 10/13/19 07:12 Metamyelocytes # 0.0 K/mm3 10/13/19 07:12 Myelocytes # 0.1 K/mm3 10/13/19 07:12 Promyelocytes # 0.0 K/mm3 10/13/19 07:12 Blast Cells # 0.0 K/mm3 10/13/19 07:12 WBC Morphology Not Reportable 10/13/19 07:12 Hypersegmented Neuts Not Reportable 10/13/19 07:12 Hyposegmented Neuts Not Reportable 10/13/19 07:12 Hypogranular Neuts Not Reportable 10/13/19 07:12 Smudge Cells Not Reportable 10/13/19 07:12 Toxic Granulation Not Reportable 10/13/19 07:12 Toxic Vacuolation Not Reportable 10/13/19 07:12 Dohle Bodies Not Reportable 10/13/19 07:12 Pelger-Huet Anomaly Not Reportable 10/13/19 07:12 Reji Rods Not Reportable 10/13/19 07:12 Platelet Estimate Consistent w auto 10/13/19 07:12 Clumped Platelets Not Reportable 10/13/19 07:12 Plt Clumps, EDTA Not Reportable 10/13/19 07:12 Large Platelets Few 10/13/19 07:12 Giant Platelets Not Reportable 10/13/19 07:12 Platelet Satelliting Not Reportable 10/13/19 07:12 Plt Morphology Comment Not Reportable 10/13/19 07:12 RBC Morphology Normal 10/13/19 07:12 Dimorphic RBCs Not Reportable 10/13/19 07:12 Polychromasia Not Reportable 10/13/19 07:12 Hypochromasia Not Reportable 10/13/19 07:12 Poikilocytosis Not Reportable 10/13/19 07:12 Anisocytosis Not Reportable 10/13/19 07:12 Microcytosis Not Reportable 10/13/19 07:12 Macrocytosis Not Reportable 10/13/19 07:12 Spherocytes Not Reportable 10/13/19 07:12 Pappenheimer Bodies Not Reportable 10/13/19 07:12 Sickle Cells Not Reportable 10/13/19 07:12 Target Cells Not Reportable 10/13/19 07:12 Tear Drop Cells Not Reportable 10/13/19 07:12 Ovalocytes Not Reportable 10/13/19 07:12 Helmet Cells Not Reportable 10/13/19 07:12 Cast[place]eda-[place] Bodies Not Reportable 10/13/19 07:12 [place] Rings Not Reportable 10/13/19 07:12 Yulia Cells Not Reportable 10/13/19 07:12 Bite Cells Not Reportable 10/13/19 07:12 Crenated Cell Not Reportable 10/13/19 07:12 Elliptocytes Not Reportable 10/13/19 07:12 Acanthocytes (Spur) Not Reportable 10/13/19 07:12 Rouleaux Not Reportable 10/13/19 07:12 Hemoglobin C Crystals Not Reportable 10/13/19 07:12 Schistocytes Not Reportable 10/13/19 07:12 Malaria parasites Not Reportable 10/13/19 07:12 Isaiah Bodies Not Reportable 10/13/19 07:12 Hem Pathologist Commnt No 10/13/19 07:12 D-Dimer 218.23 ng/mlDDU (0-234) 10/10/19 12:17 POC ABG pH 7.497 (7.35-7.45) H 10/11/19 07:09 POC ABG pCO2 33.9 (35-45) L 10/11/19 07:09 POC ABG pO2 122 (80-105) H 10/11/19 07:09 POC ABG HCO3 26.2 (22-26 mml/L) 10/11/19 07:09 POC ABG Total CO2 27 (23-27mmol/L) 10/11/19 07:09 POC ABG O2 Sat 99 10/11/19 07:09 POC ABG Base Excess 3 ((-2) - (+3)mmol/L) 10/11/19 07:09 FiO2 30 % 10/11/19 07:09 Sodium 139 mmol/L (137-145) 10/13/19 07:12 Potassium 4.5 mmol/L (3.6-5.0) 10/13/19 07:12 Chloride 101.5 mmol/L (98-107) 10/13/19 07:12 Carbon Dioxide 23 mmol/L (22-30) 10/13/19 07:12 Anion Gap 19 mmol/L 10/13/19 07:12 BUN 26 mg/dL (7-17) H 10/13/19 07:12 Creatinine 0.8 mg/dL (0.7-1.2) 10/13/19 07:12 Estimated GFR > 60 ml/min 10/13/19 07:12 BUN/Creatinine Ratio 33 % 10/13/19 07:12 Glucose 185 mg/dL (65-100) H 10/13/19 07:12 Calcium 9.1 mg/dL (8.4-10.2) 10/13/19 07:12 Phosphorus 3.70 mg/dL (2.5-4.5) 10/13/19 07:12 Magnesium 2.20 mg/dL (1.7-2.3) 10/13/19 07:12 Total Bilirubin 0.20 mg/dL (0.1-1.2) 10/13/19 07:12 AST 13 units/L (5-40) 10/13/19 07:12 ALT 15 units/L (7-56) 10/13/19 07:12 Alkaline Phosphatase 96 units/L (35-129) 10/13/19 07:12 Troponin T < 0.010 ng/mL (0.00-0.029) 10/10/19 18:26 NT-Pro-B Natriuret Pep 48.66 pg/mL (0-900) 10/10/19 12:17 Total Protein 7.3 g/dL (6.3-8.2) 10/13/19 07:12 Albumin 4.1 g/dL (3.9-5) 10/13/19 07:12 Albumin/Globulin Ratio 1.3 % 10/13/19 07:12 Urine Opiates Screen Presumptive negative 10/11/19 03:16 Urine Methadone Screen Presumptive negative 10/11/19 03:16 Ur Barbiturates Screen Presumptive negative 10/11/19 03:16 Ur Phencyclidine Scrn Presumptive negative 10/11/19 03:16 Ur Amphetamines Screen Presumptive negative 10/11/19 03:16 U Benzodiazepines Scrn Presumptive negative 10/11/19 03:16 Urine Cocaine Screen Presumptive positive 10/11/19 03:16 U Marijuana (THC) Screen Presumptive negative 10/11/19 03:16 Drugs of Abuse Note Disclamer 10/11/19 03:16 Active Medications - Current Medications Current Medications: Generic Name Dose Route Start Last Admin Trade Name Freq PRN Reason Stop Dose Admin Acetaminophen 650 mg 10/10/19 15:35 Tylenol PO Q4H PRN Pain MILD(1-3)/Fever >100.5/MENG Acetaminophen/Hydrocodone Bitart 1 each 10/10/19 16:24 10/13/19 10:56 [place] 5/325 PO 1 each Q6H PRN Administration Pain, Moderate (4-6) Albuterol 2.5 mg 10/10/19 15:35 10/12/19 17:53 Proventil IH 2.5 mg Q4H PRN Administration Shortness Of Breath Albuterol/Ipratropium 1 ampul 10/10/19 20:00 10/13/19 08:58 Duoneb *Not For Prn Use* IH 1 ampul Q6HRT YAKOV Administration Amlodipine Besylate 10 mg 10/11/19 13:00 10/13/19 10:05 Amlodipine PO 10 mg QDAY YAKOV Administration Arformoterol Tartrate 15 mcg 10/10/19 20:00 10/13/19 08:57 Brovana Nebu IH 15 mcg Q12HRT YAKOV Administration Benzonatate 100 mg 10/10/19 16:24 10/13/19 07:48 Tessalon Perles PO 100 mg Q8H PRN Administration Cough Budesonide 0.5 mg 10/10/19 20:00 10/13/19 08:49 Pulmicort IH 0.5 mg Q12HRT YAKOV Administration Famotidine 20 mg 10/10/19 22:00 10/13/19 10:06 Pepcid PO 20 mg BID YAKOV Administration Heparin Sodium (Porcine) 5,000 unit 10/10/19 22:00 10/13/19 10:06 Heparin SUB-Q 5,000 unit Q12HR YAKOV Administration Hydralazine HCl 10 mg 10/11/19 03:44 10/11/19 04:17 Apresoline IV 10 mg Q4HR PRN Administration Blood Pressure Azithromycin 500 mg/ Sodium 250 mls @ 250 mls/hr 10/11/19 10:00 10/13/19 10:04 Chloride IV 10/15/19 10:59 250 mls/hr Q24HR YAKOV Administration Protocol Methylprednisolone Sodium Succinate 40 mg 10/10/19 22:00 10/13/19 10:06 Solu-Medrol IV 40 mg Q12HR YAKOV Administration Ondansetron HCl 4 mg 10/10/19 15:35 Zofran IV Q8H PRN Nausea And Vomiting Sodium Chloride 10 ml 10/10/19 22:00 10/13/19 10:04 Sodium Chloride Flush Syringe 10 Ml IV 10 ml BID YAKOV Administration Sodium Chloride 10 ml 10/10/19 15:35 Sodium Chloride Flush Syringe 10 Ml IV PRN PRN LINE FLUSH Tizanidine HCl 4 mg 10/10/19 16:24 Zanaflex PO Q8H PRN Pain , Severe (7-10) Zolpidem Tartrate 5 mg 10/11/19 22:00 10/12/19 21:22 Ambien PO 5 mg HS YAKOV Administration
--- NOTE | 2019-10-13 18:30 | Consultation ---
History of Present Illness Consult date: 10/13/19 Reason for consult: dyspnea, cough, chest pain, COPD History of present illness: PULMONARY AND CRITICAL CARE CONSULTATION. DR. RUANO THANK YOU FOR ASKING US TO PARTICIPATE IN THE CARE OF THIS PATIENT. 58 YO Female with Obesity, HTN, COPD,Nicotine Dependence, Chronic Respiratory Failure on Home Oxygen 2L via [place] presents to ED for evaluation. Pt states that she has experienced shortness of breath, productive cough with clear mucus, as well as nasal congestion. Patient complaining pleuritic chest pain with cough. Patient transported to [facility] via private vehicle. Pt seen and evaluated in ED and found to have Acute on Chronic Respiratory Failure secondary to COPD exacerbation. Pt treated with supportive care, nebulizer therapy without improvement in symptoms. Pt subsequently placed on NIPPV. Patient admitted to medical floor. Patient has heavy history of smoking 2 packsa day for more than 30 years. Counselled her to stop smoking. Denies alcohol or drug abuse. Used work in [employer]. Denies allergies to the medications. Patient has two children. Patient still complaining wheezing and shortness of breath. Patient presently on 3 litres O2. O2 saturation 98%. BIPAP standby in the room. Patient also complaining symptoms of sleep apnea like fragmentation of sleep, day time sleepiness. Recommend sleep study as out patient. Past History Past Medical History: other (see HPI) Past Surgical History: No surgical history, Other (reviewed) Social history: single. denies: smoking, alcohol abuse, prescription drug abuse Family history: no significant family history (reviewed) Medications and Allergies Allergies Allergy/AdvReac Type Severity Reaction Status Date / Time No Known Allergies Allergy Verified 05/16/16 09:50 Home Medications Medication Instructions Recorded Confirmed Last Taken Type Budesonide/Formoterol Fumarate 2 puff IH DAILY 11/18/17 10/10/19 10/09/19 History [Symbicort 160-4.5 Mcg Inhaler] 2 Azithromycin [Zithromax] 250 mg PO DAILY 5 Days tablet 11/19/17 10/10/19 Unknown Rx Benzonatate [Tessalon Perles] 100 mg PO Q8HR PRN #20 capsule 11/19/17 10/10/19 U nknown Rx HYDROcodone/APAP 5-325 [[place] 1 each PO Q6H PRN #10 tablet 11/19/17 10/10/19 Unknown Rx 5-325 mg TAB] tiZANidine [Zanaflex 4mg TAB] 4 mg PO Q8H PRN #15 tablet 07/12/19 10/10/19 Unk nown Rx traMADol [Ultram] 50 mg PO Q6HR PRN #15 tablet 07/12/19 10/10/19 Unknown Rx Albuterol Sulfate [Proventil Hfa] 2 puff IH Q4-6H PRN #1 hfa.aer.ad 07/26/19 10/10/19 10/09/19 Rx 2 Ipratropium/Albuterol Sulfate 1 ampul IH Q6HRT 30 Days ampul.neb 07/26/19 10/10/19 10/09/19 Rx [DUONEB *Not for PRN Use*] 1 predniSONE [Deltasone] 60 mg PO QDAY #20 tab 07/26/19 10/10/19 Unknown Rx Meclizine [Antivert] 12.5 mg PO HS 10/11/19 10/11/19 Unknown History Zolpidem [Ambien] 5 mg PO HS 10/11/19 10/11/19 Unknown History amLODIPine [Norvasc] 10 mg PO DAILY 10/11/19 10/11/19 Unknown History raNITIdine HCl [Zantac] 150 mg PO BID 10/11/19 10/11/19 Unknown History Active Meds: Active Medications Acetaminophen (Tylenol) 650 mg PO Q4H PRN PRN Reason: Pain MILD(1-3)/Fever >100.5/MENG Acetaminophen/Hydrocodone Bitart ([place] 5/325) 1 each PO Q6H PRN PRN Reason: Pain, Moderate (4-6) Last Admin: 10/13/19 18:09 Dose: 1 each Documented by: Albuterol (Proventil) 2.5 mg IH Q4H PRN PRN Reason: Shortness Of Breath Last Admin: 10/12/19 17:53 Dose: 2.5 mg Documented by: Albuterol/Ipratropium (Duoneb *Not For Prn Use*) 1 ampul IH Q6HRT [facility] Last Admin: 10/13/19 14:27 Dose: 1 ampul Documented by: Amlodipine Besylate (Amlodipine) 10 mg PO QDAY [facility] Last Admin: 10/13/19 10:05 Dose: 10 mg Documented by: Arformoterol Tartrate (Brovana Nebu) 15 mcg IH Q12HRT [facility] Last Admin: 10/13/19 08:57 Dose: 15 mcg Documented by: Benzonatate (Tessalon Perles) 100 mg PO Q8H PRN PRN Reason: Cough Last Admin: 10/13/19 18:09 Dose: 100 mg Documented by: Budesonide (Pulmicort) 0.5 mg IH Q12HRT [facility] Last Admin: 10/13/19 08:49 Dose: 0.5 mg Documented by: Famotidine (Pepcid) 20 mg PO BID [facility] Last Admin: 10/13/19 10:06 Dose: 20 mg Documented by: Heparin Sodium (Porcine) (Heparin) 5,000 unit SUB-Q Q12HR [facility] Last Admin: 10/13/19 10:06 Dose: 5,000 unit Documented by: Hydralazine HCl (Apresoline) 10 mg IV Q4HR PRN PRN Reason: Blood Pressure Last Admin: 10/11/19 04:17 Dose: 10 mg Documented by: Azithromycin 500 mg/ Sodium (Chloride) 250 mls @ 250 mls/hr IV Q24HR [facility]; Protocol Stop: 10/15/19 10:59 Last Admin: 10/13/19 10:04 Dose: 250 mls/hr Documented by: Methylprednisolone Sodium Succinate (Solu-Medrol) 40 mg IV Q12HR [facility] Last Admin: 10/13/19 10:06 Dose: 40 mg Documented by: Ondansetron HCl (Zofran) 4 mg IV Q8H PRN PRN Reason: Nausea And Vomiting Sodium Chloride (Sodium Chloride Flush Syringe 10 Ml) 10 ml IV BID [facility] Last Admin: 10/13/19 10:04 Dose: 10 ml Documented by: Sodium Chloride (Sodium Chloride Flush Syringe 10 Ml) 10 ml IV PRN PRN PRN Reason: LINE FLUSH Tizanidine HCl (Zanaflex) 4 mg PO Q8H PRN PRN Reason: Pain , Severe (7-10) Zolpidem Tartrate (Ambien) 5 mg PO HS [facility] Last Admin: 10/12/19 21:22 Dose: 5 mg Documented by: Review of Systems All systems: negative Physical Examination Vital signs: Vital Signs Temp Pulse Resp BP Pulse Ox 98.5 F 92 H 20 107/68 94 10/10/19 11:22 10/10/19 11:22 10/10/19 11:22 10/10/19 11:22 10/10/19 11:22 General appearance: alert, agitated, appears uncomfortable Eyes: non-icteric ENT: oropharynx moist Neck: supple, no JVD Effort: mildly labored Ascultation: Bilateral: wheezes Cardiovascular: regular rate and rhythm Gastrointestinal: normoactive bowel sounds, soft, non-tender Integumentary: normal Extremities: no cyanosis, no edema Musculoskeletal: no deformities Gait: other (Resting in bed at this time.) normal mental status, non-focal exam, pupils equal and round, CN II-XII normal anxious Results - Laboratory Findings CBC and BMP: 10/13/19 07:12 10/13/19 07:12 ABG POC ABG pH 7.497 (7.35-7.45) H 10/11/19 07:09 POC ABG pCO2 33.9 (35-45) L 10/11/19 07:09 POC ABG pO2 122 (80-105) H 10/11/19 07:09 POC ABG HCO3 26.2 (22-26 mml/L) 10/11/19 07:09 POC ABG Total CO2 27 (23-27mmol/L) 10/11/19 07:09 POC ABG O2 Sat 99 10/11/19 07:09 PT/INR, D-dimer D-Dimer 218.23 ng/mlDDU (0-234) 10/10/19 12:17 Abnormal lab findings: Abnormal Labs 10/10/19 10/10/19 10/10/19 11:27 11:27 16:40 WBC MCH RDW 15.3 H Lymph % (Auto) Lymph # Seg Neutrophils % Seg Neuts % (Manual) Lymphocytes % (Manual) Seg Neutrophils # Man Lymphocytes # (Manual) POC ABG pH 7.323 L POC ABG pCO2 53.6 H POC ABG pO2 275 H BUN Glucose 120 H 10/10/19 10/11/19 10/11/19 23:43 07:09 07:09 WBC MCH RDW 15.6 H Lymph % (Auto) 9.0 L Lymph # 0.7 L Seg Neutrophils % 88.5 H Seg Neuts % (Manual) Lymphocytes % (Manual) Seg Neutrophils # Man Lymphocytes # (Manual) POC ABG pH 7.497 H POC ABG pCO2 47.3 H 33.9 L POC ABG pO2 122 H BUN Glucose 10/13/19 10/13/19 07:12 07:12 WBC 12.3 H MCH 27 L RDW 15.7 H Lymph % (Auto) Lymph # Seg Neutrophils % Seg Neuts % (Manual) 87.0 H Lymphocytes % (Manual) 8.0 L Seg Neutrophils # Man 10.7 H Lymphocytes # (Manual) 1.0 L POC ABG pH POC ABG pCO2 POC ABG pO2 BUN 26 H Glucose 185 H - Diagnostic Findings CT scan - chest: report reviewed (ANGIO ct OF CHEST REPORTED NO PE. NO ACUTE FINDINGS.), image reviewed Assessment and Plan 58 YO Female with Obesity, HTN, COPD,Nicotine Dependence, Chronic Respiratory Failure on Home Oxygen 2L via [place] presents to ED for evaluation. Pt states that she has experienced shortness of breath, productive cough with clear mucus, as well as nasal congestion. Patient complaining pleuritic chest pain with cough. Patient transported to [facility] via private vehicle. Pt seen and evaluated in ED and found to have Acute on Chronic Respiratory Failure secondary to COPD exacerbation. Pt treated with supportive care, nebulizer therapy without improvement in symptoms. Pt subsequently placed on NIPPV. Patient admitted to medical floor. Patient has heavy history of smoking 2 packsa day for more than 30 years. Counselled her to stop smoking. Denies alcohol or drug abuse. Used work in [employer]. Denies allergies to the medications. Patient has two children. Patient still complaining wheezing and shortness of breath. Patient presently on 3 litres O2. O2 saturation 98%. BIPAP standby in the room. Patient also complaining symptoms of sleep apnea like fragmentation of sleep, day time sleepiness. Recommend sleep study as out patient. - Patient Problems (1) Acute and chronic respiratory failure Current Visit: No Status: Acute Qualifiers: Respiratory failure complication: hypoxia Qualified Code(s): J96.21 - Acute and chronic respiratory failure with hypoxia Plan to address problem: O2 3 litres via nasal canula. BIPAP 16/8, rate 16, FIO2 30%during night time and prn for shortness of breath during day time. Albuterol/atrovent aerosol treatments q 6 hours. Increase I/V solumedrol 60 mg I/V q 8 hours. Continue S/C heparin. Continue famotidine. Continue zithromax. (2) Chest pain Current Visit: Yes Status: Acute Plan to address problem: Pleuritic chest pain with cough, which is improved at this time. (3) COPD exacerbation Current Visit: No Status: Acute Plan to address problem: O2 3 litres via nasal canula. BIPAP 16/8, rate 16, FIO2 30% during night time and prn for shortness of breath during day time. Albuterol/atrovent aerosol treatments q 6 hours. Increase I/V solumedrol 60 mg I/V q 8 hours. Continue S/C heparin. Continue famotidine. Continue zithromax. PFTs and sleep study as out patient. (4) HTN (hypertension) Current Visit: Yes Status: Acute Qualifiers: Hypertension type: essential hypertension Qualified Code(s): I10 - Essential (primary) hypertension Plan to address problem: Management as per primary care. (5) Nicotine dependence Current Visit: Yes Status: Acute Qualifiers: Nicotine product type: cigarettes Plan to address problem: Counselled to stop smoking. (6) Obesity hypoventilation syndrome Current Visit: Yes Status: Acute Plan to address problem: BIPAP 16/8, rate 16, FIO2 30%during night time and prn for shortness of breath during day time. Sleep study as out patient. (7) Morbid obesity with BMI of 40.0-44.9, adult Current Visit: Yes Status: Acute Plan to address problem: Counselled to loose weight. Recommend diet and exercise. (8) Sleep apnea in adult Current Visit: Yes Status: Acute Plan to address problem: BIPAP 16/8, rate 16, FIO2 30%during night time and prn for shortness of breath during day time. Sleep study as out patient.
[2019-10-13] MEDS: methylPREDNISolone Sod Succinate 125 MG/2 ML INJ IV SCH (21:50)
[2019-10-13] MEDS: ZOLPIDEM 5 MG TAB PO SCH (21:51)
[2019-10-14] MEDS: IPRATROPIUM/ALBUTEROL SULFATE 3 ML AMPUL.NEB IH SCH ×3 (02:55→14:00)
[2019-10-14] MEDS ORDERED: MAGNESIUM HYDROXIDE (MOM) ORAL LIQD UDC PO ONE (04:30)
[2019-10-14] MEDS: HYDROcodone/ACETAMINOPHEN 5-325 MG TAB PO PRN (05:14)
[2019-10-14] MEDS: methylPREDNISolone Sod Succinate 125 MG/2 ML INJ IV SCH (05:14)
[2019-10-14] MEDS: BENZONATATE 100 MG CAP PO PRN (06:16)
[2019-10-14] MEDS: BUDESONIDE 0.5 MG/2 ML NEBU IH SCH (07:30)
[2019-10-14] MEDS: ARFORMOTEROL 15 MCG/2 ML NEBU IH SCH (07:30)
[2019-10-14] MEDS: HEPARIN 5,000 UNIT/1 ML VIAL SUB-Q SCH (09:39)
[2019-10-14] MEDS: FAMOTIDINE 20 MG TAB PO SCH (09:39)
[2019-10-14] MEDS: AZITHROMYCIN 500 MG in SODIUM CHLORIDE 0.9% 250ML 250 ML IV SCH (09:39)
[2019-10-14] MEDS: amLODIPine 10 MG TAB PO SCH (09:40)
[2019-10-14] MEDS ORDERED: DOCUSATE SODIUM 100 MG CAP PO SCH (10:00)
--- NOTE | 2019-10-14 11:24 | Discharge Summary ---
Providers - Providers Date of Admission: 10/12/19 09:38 Date of discharge: 10/14/19 Attending physician: AVANI RUANO 10/13/19 12:25 Consult to Physician [CONS] Routine Comment: Consulting Provider: LUIS ANGEL JUNIOR Physician Instructions: Reason For Exam: resp failure Primary care physician: JIN DE JESUS Hospitalization Reason for admission: sob Condition: Fair Hospital course: 58 YO Female with Obesity, HTN, COPD,Nicotine Dependence, Chronic Respiratory Failure on Home Oxygen 2L via [place] presents to ED and was admitted for acute on chronic hypoxic respiratory failure secondary to obesity hypoventilation syndrome and COPD exacerbation. The patient was treated with supplemental oxygen, nebulizer therapy, IV Solu-Medrol, IV antibiotics and high flow oxygen. CT of the chest showed no evidence of PE. Patient initially required BiPAP which was later just needed at night and then Patient's oxygen was weaned back to her baseline 2 L. Patient was seen by pulmonary consultation who agreed with treatment plan. Patient reports today that she is back to her baseline respiratory status and will like to discharge home. Patient denies any shortness of breath or chest pain. She will follow-up with her pumper head. Dedicated discharge time 32 minutes. Disposition: [id number] TO HOME OR SELFCARE Time spent for discharge: 32 - Discharge Diagnoses (1) Dyspnea Status: Acute (2) HTN (hypertension) Status: Acute Qualifiers: Hypertension type: essential hypertension Qualified Code(s): I10 - Essential (primary) hypertension (3) Morbid obesity with BMI of 40.0-44.9, adult Status: Acute (4) Obesity hypoventilation syndrome Status: Acute (5) Sleep apnea in adult Status: Acute Core Measure Documentation - Palliative Care Palliative Care/ Comfort Measures: Not Applicable - Core Measures Any of the following diagnoses?: none Exam - Constitutional Vitals: Temp Pulse Resp BP Pulse Ox 98.4 F 86 20 156/84 100 10/14/19 04:56 10/14/19 09:40 10/14/19 08:02 10/14/19 09:40 10/14/19 07:34 General appearance: Present: no acute distress, well-nourished - EENT Eyes: Present: PERRL ENT: hearing intact, clear oral mucosa - Neck Neck: Present: supple, normal ROM - Respiratory Respiratory effort: normal Respiratory: bilateral: CTA - Cardiovascular Heart Sounds: Present: S1 & S2. Absent: rub, click - Extremities Extremities: pulses symmetrical, No edema Peripheral Pulses: within normal limits - Abdominal General gastrointestinal: Present: soft, non-tender, non-distended, normal bowel sounds Female genitourinary: Present: normal - Integumentary Integumentary: Present: clear, warm, dry - Musculoskeletal Musculoskeletal: gait normal, strength equal bilaterally - Psychiatric Psychiatric: appropriate mood/affect, intact judgment & insight - Neurologic Neurologic: CNII-XII intact, moves all extremities Plan Activity: advance as tolerated Weight Bearing Status: Weight Bear as Tolerated Diet: low fat, low cholesterol, low salt Follow up with: JIN DE JESUS MD [Primary Care Provider] - 7 Days LUIS ANGEL JUNIOR MD [Staff Physician] - 7 Days Prescriptions: Zolpidem [Ambien] 5 mg PO HS #12 predniSONE [Deltasone] 60 mg PO QDAY #20 tab HYDROcodone/APAP 5-325 [[place] 5-325 mg TAB] 1 each PO Q6H PRN #12 tablet PRN Reason: Pain, Moderate (4-6) Benzonatate [Tessalon Perles] 100 mg PO Q8HR PRN #20 capsule PRN Reason: Cough tiZANidine [Zanaflex 4mg TAB] 4 mg PO Q8H PRN #15 tablet PRN Reason: Pain , Severe (7-10) Azithromycin [Zithromax Z-LILIANE] 250 mg PO DAILY 5 Days tablet
[2019-10-14 11:36] VITALS: BP 166/84
[2019-10-14] MEDS: ALBUTEROL 2.5 MG/3 ML NEBU IH PRN (13:56)
== END 2019-10-14 15:05 | disposition home or self-care (01) | DRG 189 ==
LOC: ED 11:01 → 3A 15:35 → OBSVTOIN 10-12 09:38
PROVIDERS: ADMIT Internal Medicine; ATTEND Hospitalist
PROC: 4A033R1 Measurement of Arterial Saturation, Peripheral, Percutaneous Approach (ICD-10-PCS; 2019-10-10)
PROC: 5A09357 Assistance with Respiratory Ventilation, Less than 24 Consecutive Hours, Continuous Positive Airway Pressure (ICD-10-PCS; 2019-10-10)
PROC: 5A09357 Assistance with Respiratory Ventilation, Less than 24 Consecutive Hours, Continuous Positive Airway Pressure (ICD-10-PCS; 2019-10-11)
PROC: 3E0234Z Introduction of Serum, Toxoid and Vaccine into Muscle, Percutaneous Approach (ICD-10-PCS; principal; 2019-10-12)
PROC: 5A09357 Assistance with Respiratory Ventilation, Less than 24 Consecutive Hours, Continuous Positive Airway Pressure (ICD-10-PCS; 2019-10-12)
DX: J96.21 Acute and chronic respiratory failure with hypoxia (principal); J44.1 Chronic obstructive pulmonary disease with (acute) exacerbation; I10 Essential (primary) hypertension; E66.2 Morbid (severe) obesity with alveolar hypoventilation; F17.210 Nicotine dependence, cigarettes, uncomplicated; Z99.81 Dependence on supplemental oxygen; Z71.6 Tobacco abuse counseling; Z79.899 Other long term (current) drug therapy; Z71.3 Dietary counseling and surveillance; Z23 Encounter for immunization
CPT/HCPCS: 36415; 36600; 71046; 71275; 80048; 80053; 80307; 82803; 83735; 83880; 84100; 84484; 85007; 85025; 85379; 87116; 90686; 90732; 93005; 93010; 94640; 94760; 96360; 99406; G0378; J0360; J0456; J1644; J2060; J2920; J2930; J7050; J7512; Q9967

== ENCOUNTER 2019-12-10 20:43 | Emergency (ER) | payer MEDICAID ==
[2019-12-10 22:08] LABS: Basophils # (Auto) 0.1 K/mm3 (0.0-0.1); Basophils % (Auto) 1.2 % (0.0-1.8); Eosinophils # (Auto) 0.4 K/mm3 (0.0-0.4); Eosinophils % (Auto) 4.9 % (0.0-4.3); Hematocrit 38.5 % (30.3-42.9); Hemoglobin 12.1 gm/dl (10.1-14.3); Lymphocytes # (Auto) 2.2 K/mm3 (1.2-5.4); Lymphocytes % (Auto) 26.9 % (13.4-35.0); Mean Corpuscular HGB Conc 32 % (30-34); Mean Corpuscular Volume 86 fl (79-97); Monocytes # (Auto) 0.5 K/mm3 (0.0-0.8); Monocytes % (Auto) 5.8 % (0.0-7.3); Platelet Count 305 K/mm3 (140-440); Red Blood Count 4.46 M/mm3 (3.65-5.03); Red Cell Distribution Width 15.8 % (13.2-15.2)
[2019-12-10 22:25] LABS: BUN/Creatinine Ratio 16; Blood Urea Nitrogen 13 mg/dL (7-17); Calcium 9.1 mg/dL (8.4-10.2); Hemolysis Index 14
--- NOTE | 2019-12-10 22:30 | XRay Report ---
CHEST 1 VIEW INDICATION / CLINICAL INFORMATION: Chest Pain. COMPARISON: 10/09/2019 FINDINGS: SUPPORT DEVICES: None. HEART / MEDIASTINUM: No significant abnormality. LUNGS / PLEURA: No significant pulmonary or pleural abnormality. No pneumothorax. ADDITIONAL FINDINGS: No significant additional findings. IMPRESSION: 1. No acute findings. Signer Name: Carmine Guillen MD Signed: 12/10/2019 10:26 PM Workstation Name: [id number]
[2019-12-10] MEDS ORDERED: IPRATROPIUM 0.02% NEBU 2.5 ML IH ONE (23:08)
[2019-12-10] MEDS ORDERED: ALBUTEROL 2.5 MG/3 ML NEBU IH ONE (23:08)
[2019-12-10] MEDS ORDERED: cefTRIAXone/NS 1 GM/50 ML 1 GM/50 ML BAG IV ONE (23:08)
[2019-12-10] MEDS ORDERED: BENZONATATE 100 MG CAP PO ONE (23:09)
--- NOTE | 2019-12-10 23:13 | Emergency Department Report ---
- General Chief Complaint: Dyspnea/Respdistress Stated Complaint: FERNANDO Time Seen by Provider: 12/10/19 22:55 Source: patient, EMS Mode of arrival: Stretcher Limitations: No Limitations - History of Present Illness Initial Comments: Patient is a 59-year-old female presents emergency room with complaints of a productive cough that began 2 days ago. She states that she has white sputum. Patient states that she had a subjective fever yesterday,. She states she also has shortness of breath and chest tightness. Patient states that she was given steroid injection and nebulizer treatment by EMS and that she is feeling better now. She states that she ran out of her medications. She states that she does not have her albuterol inhaler, albuterol nebulizer solution, Symbicort, Ambien. She states that she does have a PCP but missed her appointment so they would not refill her medications. PMHx of COPD uses 2L of home oxygen. - Related Data Home Medications Medication Instructions Recorded Confirmed Last Taken Meclizine [Antivert] 12.5 mg PO HS 10/11/19 10/11/19 Unknown amLODIPine 10 mg PO DAILY 10/11/19 10/11/19 Unknown raNITIdine HCl [Zantac] 150 mg PO BID 10/11/19 10/11/19 Unknown Previous Rx's Medication Instructions Recorded Last Taken Type traMADoL [Ultram 50 MG tab] 50 mg PO Q6HR PRN #15 tablet 07/12/19 Unknown Rx Azithromycin [Zithromax Z-LILIANE] 250 mg PO DAILY 5 Days tablet 10/14/19 Unknown Rx HYDROcodone/APAP 5-325 [[place] 1 each PO Q6H PRN #12 tablet 10/14/19 Unknown Rx 5-325 mg TAB] Zolpidem [Ambien] 5 mg PO HS #12 10/14/19 Unknown Rx Zolpidem [Ambien] 5 mg PO HS #30 tablet 10/14/19 Unknown Rx predniSONE [Deltasone] 60 mg PO QDAY #20 tab 10/14/19 Unknown Rx tiZANidine [Zanaflex 4mg TAB] 4 mg PO Q8H PRN #15 tablet 10/14/19 Unknown Rx Albuterol Sulfate [Albuterol 0.63% 0.63 mg IH TID PRN #1 box 12/11/19 Unknown Rx NEBS] Albuterol Sulfate [Proventil Hfa] 2 puff IH Q4-6H PRN #1 hfa.aer.ad 12/11/19 Unknown Rx Benzonatate [Tessalon Perles] 100 mg PO Q8HR PRN #20 capsule 12/11/19 Unknown Rx Budesonide/Formoterol Fumarate 2 puff IH DAILY #1 12/11/19 Unknown Rx [Symbicort 160-4.5 Mcg Inhaler] Zolpidem [Ambien] 10 mg PO QHS #10 tab 12/11/19 Unknown Rx predniSONE [Deltasone] 40 mg PO DAILY 7 Days #14 tablet 12/11/19 Unknown Rx Allergies Allergy/AdvReac Type Severity Reaction Status Date / Time No Known Allergies Allergy Verified 05/16/16 09:50 ED Review of Systems ROS: Stated complaint: FERNANDO Other details as noted in HPI Comment: All other systems reviewed and negative ED Past Medical Hx - Past Medical History Hx Hypertension: Yes Hx Heart Attack/AMI: No Hx Congestive Heart Failure: No Hx Diabetes: No Hx Deep Vein Thrombosis: No Hx Pulmonary Embolism: No Hx GERD: No Hx Liver Disease: No Hx Renal Disease: No Hx Sickle Cell Disease: No Hx Arthritis: No Hx Headaches / Migraines: No Hx Seizures: No Hx Kidney Stones: No Hx Psychiatric Treatment: No Hx Asthma: Yes Hx COPD: Yes (2L [place] home 02) Hx Tuberculosis: No Hx Dementia: No Hx HIV: No - Surgical History Hx Coronary Stent: No Hx Open Heart Surgery: No Hx Pacemaker: No Hx Internal Defibrillator: No Hx Cholecystectomy: No Hx Appendectomy: No Hx Breast Surgery: No - Social History Smoking Status: Current Some Day Smoker Substance Use Type: None - Medications Home Medications: Home Medications Medication Instructions Recorded Confirmed Last Taken Type traMADoL [Ultram 50 MG tab] 50 mg PO Q6HR PRN #15 tablet 07/12/19 10/10/19 Unknown Rx Meclizine [Antivert] 12.5 mg PO HS 10/11/19 10/11/19 Unknown History amLODIPine 10 mg PO DAILY 10/11/19 10/11/19 Unknown History raNITIdine HCl [Zantac] 150 mg PO BID 10/11/19 10/11/19 Unknown History Azithromycin [Zithromax Z-LILIANE] 250 mg PO DAILY 5 Days tablet 10/14/19 Unknown Rx HYDROcodone/APAP 5-325 [[place] 1 each PO Q6H PRN #12 tablet 10/14/19 Unknown Rx 5-325 mg TAB] Zolpidem [Ambien] 5 mg PO HS #12 10/14/19 Unknown Rx Zolpidem [Ambien] 5 mg PO HS #30 tablet 10/14/19 Unknown Rx predniSONE [Deltasone] 60 mg PO QDAY #20 tab 10/14/19 Unknown Rx tiZANidine [Zanaflex 4mg TAB] 4 mg PO Q8H PRN #15 tablet 10/14/19 Unknown Rx Albuterol Sulfate [Albuterol 0.63% 0.63 mg IH TID PRN #1 box 12/11/19 Unknown Rx NEBS] Albuterol Sulfate [Proventil Hfa] 2 puff IH Q4-6H PRN #1 hfa.aer.ad 12/11/19 Unknown Rx Benzonatate [Tessalon Perles] 100 mg PO Q8HR PRN #20 capsule 12/11/19 Unknown Rx Budesonide/Formoterol Fumarate 2 puff IH DAILY #1 12/11/19 Unknown Rx [Symbicort 160-4.5 Mcg Inhaler] Zolpidem [Ambien] 10 mg PO QHS #10 tab 12/11/19 Unknown Rx predniSONE [Deltasone] 40 mg PO DAILY 7 Days #14 tablet 12/11/19 Unknown Rx ED Physical Exam - General Limitations: No Limitations General appearance: alert, in no apparent distress - Head Head exam: Present: atraumatic, normocephalic - Eye Eye exam: Present: normal appearance - ENT ENT exam: Present: mucous membranes moist - Respiratory Respiratory exam: Present: wheezes (mild expiratory bilaterally), prolonged expiratory. Absent: respiratory distress, rales, rhonchi, stridor, chest wall tenderness, accessory muscle use, decreased breath sounds - Cardiovascular Cardiovascular Exam: Present: regular rate, normal rhythm, normal heart sounds. Absent: systolic murmur, diastolic murmur, rubs, gallop - Neurological Exam Neurological exam: Present: alert, oriented X3 - Psychiatric Psychiatric exam: Present: normal affect, normal mood - Skin Skin exam: Present: warm, dry, intact ED Course Vital Signs 12/10/19 12/10/19 12/10/19 20:57 21:12 21:15 Temperature 98.4 F Pulse Rate 78 77 80 Pulse Rate [ Bilateral Throughout] Respiratory 22 19 24 Rate Respiratory Rate [Bilateral Throughout] Blood Pressure 134/78 131/67 O2 Sat by Pulse 100 100 100 Oximetry 12/10/19 12/10/19 12/10/19 21:18 21:30 22:01 Temperature Pulse Rate 73 87 Pulse Rate [ Bilateral Throughout] Respiratory 24 24 20 Rate Respiratory Rate [Bilateral Throughout] Blood Pressure 129/81 121/78 O2 Sat by Pulse 100 98 100 Oximetry 12/10/19 12/11/19 12/11/19 23:01 00:01 00:15 Temperature Pulse Rate 73 74 Pulse Rate [ 90 Bilateral Throughout] Respiratory 17 16 Rate Respiratory 20 Rate [Bilateral Throughout] Blood Pressure 159/88 O2 Sat by Pulse 99 100 Oximetry ED Medical Decision Making - Lab Data Result diagrams: 12/10/19 21:48 12/10/19 21:48 Lab Results 12/10/19 12/10/19 Range/Units 21:48 21:48 WBC 8.3 (4.5-11.0) K/mm3 RBC 4.46 (3.65-5.03) M/mm3 Hgb 12.1 (10.1-14.3) gm/dl Hct 38.5 (30.3-42.9) % MCV 86 (79-97) fl MCH 27 L (28-32) pg MCHC 32 (30-34) % RDW 15.8 H (13.2-15.2) % Plt Count 305 (140-440) K/mm3 Lymph % (Auto) 26.9 (13.4-35.0) % [place] % (Auto) 5.8 (0.0-7.3) % Eos % (Auto) 4.9 H (0.0-4.3) % Baso % (Auto) 1.2 (0.0-1.8) % Lymph # 2.2 (1.2-5.4) K/mm3 [place] # 0.5 (0.0-0.8) K/mm3 Eos # 0.4 (0.0-0.4) K/mm3 Baso # 0.1 (0.0-0.1) K/mm3 Seg Neutrophils % 61.2 (40.0-70.0) % Seg Neutrophils # 5.1 (1.8-7.7) K/mm3 Sodium 141 (137-145) mmol/L Potassium 4.3 (3.6-5.0) mmol/L Chloride 103.0 (98-107) mmol/L Carbon Dioxide 24 (22-30) mmol/L Anion Gap 18 mmol/L BUN 13 (7-17) mg/dL Creatinine 0.8 (0.7-1.2) mg/dL Estimated GFR > 60 ml/min BUN/Creatinine Ratio 16 % Glucose 120 H (65-100) mg/dL Calcium 9.1 (8.4-10.2) mg/dL - Radiology Data Radiology results: report reviewed CHEST 1 VIEW INDICATION / CLINICAL INFORMATION: Chest Pain. COMPARISON: 10/09/2019 FINDINGS: SUPPORT DEVICES: None. HEART / MEDIASTINUM: No significant abnormality. LUNGS / PLEURA: No significant pulmonary or pleural abnormality. No pneumothorax. ADDITIONAL FINDINGS: No significant additional findings. IMPRESSION: 1. No acute findings. Signer Name: Carmine Guillen MD Signed: 12/10/2019 10:26 PM Workstation Name: [id number] Transcribed By: GA Dictated By: Carmine Guillen MD Electronically Authenticated By: Carmine Guillen MD Signed Date/Time: 12/10/192225 DD/ 24 TD/TT: - Medical Decision Making Patient is a 59-year-old female presents emergency room with complaints of a productive cough that began 2 days ago. She states that she has white sputum. Patient states that she had a subjective fever yesterday,. She states she also has shortness of breath and chest tightness. Patient states that she was given steroid injection and nebulizer treatment by EMS and that she is feeling better now. She states that she ran out of her medications. She states that she does not have her albuterol inhaler, albuterol nebulizer solution, Symbicort, Ambien. She states that she does have a PCP but missed her appointment so they would not refill her medications. PMHx of COPD uses 2L of home oxygen. VSS. labs are stable. CXR: 1. No acute findings. on initial exam: wheezing and prolonged expiratory phase. pt given neb tx and wheezing significantly improved. pt given IV ceftriaxone and IV azithromycin while in the ED. given history of COPD and productive cough with sputum change, will place pt on abx for acute on chronic COPD. pt was ambulated while in the ED on her 2L of home oxygen and her saturation remained 97%. pt will be treated with prescriptions for acute bronchitis. pt given refill of her medications until she is able to see her PCP. advised pt to please take medication as prescribed. Please follow-up with a primary care doctor and clinic coordinator in the next 2-3 days. Return to the emergency room immediately for any new or worsening symptoms. discussed smoking cessation with patient. - Differential Diagnosis PNA, URI, acute bronchitis, CHF Critical care attestation.: If time is entered above; I have spent that time in minutes in the direct care of this critically ill patient, excluding procedure time. ED Disposition Clinical Impression: Acute bronchitis with COPD, Tobacco abuse Disposition: TO HOME OR SELFCARE Is pt being admited?: No Does the pt Need Aspirin: No Condition: Stable Instructions: How to Stop Smoking (ED), Acute Bronchitis (ED), Chronic Obstructive Pulmonary Disease (ED) Additional Instructions: Please take medication as prescribed. Please follow-up with a primary care doctor and clinic coordinator in the next 2-3 days. Return to the emergency room immediately for any new or worsening symptoms. Prescriptions: Zolpidem [Ambien] 10 mg PO QHS #10 tab Albuterol Sulfate [Albuterol 0.63% NEBS] 0.63 mg IH TID PRN #1 box PRN Reason: Wheezing predniSONE [Deltasone] 40 mg PO DAILY 7 Days #14 tablet Albuterol Sulfate [Proventil Hfa] 2 puff IH Q4-6H PRN #1 hfa.aer.ad PRN Reason: Shortness Of Breath Budesonide/Formoterol Fumarate [Symbicort 160-4.5 Mcg Inhaler] 2 puff IH DAILY #1 Benzonatate [Tessalon Perles] 100 mg PO Q8HR PRN #20 capsule PRN Reason: Cough Referrals: PRIMARY CARE, [Primary Care Provider] - 2-3 Days FENG COOMBS MD [Staff Physician] - 2-3 Days Time of Disposition: 01:15 Print Language: CAMBODIAN
[2019-12-10] MEDS ORDERED: AZITHROMYCIN 500 MG in SODIUM CHLORIDE 0.9% 250ML 250 ML IV ONE (23:38)
[2019-12-11 00:27] VITALS: BP 159/88
== END 2019-12-11 02:31 | disposition home or self-care (01) ==
LOC: ED 20:43
DX: J20.9 Acute bronchitis, unspecified (principal); J44.0 Chronic obstructive pulmonary disease with (acute) lower respiratory infection; R50.9 Fever, unspecified; F17.200 Nicotine dependence, unspecified, uncomplicated; I10 Essential (primary) hypertension; Z79.899 Other long term (current) drug therapy
CPT/HCPCS: 36415; 71045; 80048; 85025; 94644; 96365; 96368; 99285; J0456; J0696; J7050

== ENCOUNTER 2021-05-21 15:33 | Emergency (ER) | payer MEDICAID ==
--- NOTE | 2021-05-21 16:29 | Event Note ---
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 Further treatment and workup at subsequent clinical providers discretion. Patient/guardian urged not to elope from the ED as their condition may be serious if not clinically assessed and managed. Initial orders include: Stroke work-up Main ED evaluation
[2021-05-21 16:58] LABS: Basophils # (Auto) 0.1 K/mm3 (0.0-0.1); Basophils % (Auto) 0.6 % (0.0-1.8); Eosinophils # (Auto) 0.2 K/mm3 (0.0-0.4); Eosinophils % (Auto) 1.7 % (0.0-4.3); Hematocrit 36.5 % (30.3-42.9); Hemoglobin 12.1 gm/dl (10.1-14.3); Lymphocytes # (Auto) 2.3 K/mm3 (1.2-5.4); Lymphocytes % (Auto) 24.2 % (13.4-35.0); Mean Corpuscular HGB Conc 33 % (30-34); Mean Corpuscular Volume 87 fl (79-97); Monocytes # (Auto) 0.6 K/mm3 (0.0-0.8); Monocytes % (Auto) 6.7 % (0.0-7.3); Platelet Count 313 K/mm3 (140-440); Red Cell Distribution Width 16.2 % (13.2-15.2)
[2021-05-21 17:06] VITALS: BP 201/90
[2021-05-21 17:19] LABS: Alanine Aminotransferase 13 units/L (7-56); Albumin 3.8 g/dL (3.9-5); BUN/Creatinine Ratio 14; Blood Urea Nitrogen 10 mg/dL (7-17); Calcium 8.9 mg/dL (8.4-10.2); Hemolysis Index 9
--- NOTE | 2021-05-21 17:26 | XRay Report ---
XR chest routine 2V INDICATION / CLINICAL INFORMATION: weakness; sob. COMPARISON: 05/11/2021 FINDINGS: SUPPORT DEVICES: None. HEART /PULMONARY VASCULATURE: No significant abnormality. LUNGS / PLEURA: No significant pulmonary or pleural abnormality. No pneumothorax. ADDITIONAL FINDINGS: No significant additional findings. IMPRESSION: 1. No acute findings. Signer Name: Riley Alcantar MD Signed: 05/21/2021 5:21 PM Workstation Name: [id number]
--- NOTE | 2021-05-25 09:41 | Electrocardiograph Report ---
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
== END 2021-05-21 19:00 | disposition left against medical advice (07) ==
LOC: ED 15:33
DX: R20.0 Anesthesia of skin (principal); Z53.21 Procedure and treatment not carried out due to patient leaving prior to being seen by health care provider
CPT/HCPCS: 71046; 80053; 82550; 82962; 83735; 84484; 85025; 93005